=== PATIENT | female | born 1945 | race Caucasian/White ===

== ENCOUNTER 2017-01-11 16:07 | Inpatient (IN) | payer MEDICARE, OTHER ==
--- NOTE | ~2017-01-11 | CN ---
Consultation Report [facility] [address] [place]. [address] NAME: CESARIO CHAND : 45 STATUS : ADM IN PAT#: [id number] AGE: 71 ADM/REG DATE : 01/11/17 MR#: [id number] REPORT SERV DATE: 01/13/17 DICTATED BY: AMAURY MICHAEL DATE: 01/12/17 REPORT STATUS : Draft TRANSCRIBED BY: MODL DATE: 01/12/17 CONSULTATION DATE OF CONSULTATION: 01/12/2017 REASON FOR CONSULTATION: Adnexal mass. REASON FOR ADMISSION: 1. On 01/11/2017, evaluation for monthlong nausea or vomiting with current medical problems in a 71-year-old white female, 1, para 1, with past history of anemia secondary to bleeding hemorrhoids in which she received an iron transfusion. 2. Atrial fibrillation and atrial fibrillation flutter with three past cardiac ablations. 3. Diabetes type 2 with insulin pump. 4. Acute urinary tract infection. 5. Chronic kidney disease, stage III. 6. Pulmonary hypertension with left ventricular hypertrophy. 7. Hypoxemia and tobacco use. HISTORY OF PRESENT ILLNESS: Ms Chand presented to the emergency room after a month of nausea and vomiting for the past months in which she says she has lost 30 to 35 pounds, and has been unable to take multiple medications. She has been admitted for urinary tract infection, and dehydration for which she has been treated with Rocephin and IV fluids. She states she has had chronic nausea and vomiting for quite some time due to reflux, but in the past month it became worse, where she could not keep her medications down. She came to [facility] Emergency room on 11/25/2016. At which time, she had a CT that did not show specific pelvic abnormalities, although she did at that time have the same finding she had here, which was 18 x 28 mm simple cyst on the left without ascites or adenopathy. The CT obtained yesterday at [facility] revealed the same findings 18 x 28 mm simple cyst without adenopathy or ascites. I had discussed these two CT reports with Dr. Gonzalez Saab at [facility]. PAST SURGICAL HISTORY: Includes cardiac ablation x3, section 40 years ago, cholecystectomy and hysterectomy performed many years ago as well. PHYSICAL EXAMINATION: As previously noted. IMPRESSION: 71-year-old white female with chronic nausea and vomiting with recent dehydration and urinary tract infection, being evaluated for cause of this incidental finding of 1.8 x 2.8 cm simple cyst on the left ovary, which has not changed in the past month and a half. This is likely chronic and shows no sign of contributing to her current condition. At this point, I would recommend followup ultrasound in four to six months, but would not recommend further workup on this admission as a source of nausea or pain. I will be available for further questions or evaluations as needed. Consultation Report [address] [place]. [address] NAME: CESARIO CHAND : 45 STATUS : ADM IN PAT#: [id number] AGE: 71 ADM/REG DATE : 01/11/17 MR#: [id number] REPORT SERV DATE: 01/13/17 DICTATED BY: AMAURY MICHAEL DATE: 01/12/17 REPORT STATUS : Draft TRANSCRIBED BY: RANDALL DATE: 01/12/17 BRENTON/RANDALL aury Michael M.D. / [id number] CC: Andie Reinoso M.D.
--- NOTE | ~2017-01-11 | DS ---
Discharge Summary [facility] [address] [place]. [address] NAME: CESARIO RENTERAI : 45 STATUS : DIS IN PAT#: [id number] AGE: 71 ADM/REG DATE : 01/11/17 MR#: [id number] REPORT SERV DATE: 01/15/17 DICTATED BY: INGRID JOHNSON DATE: 01/14/17 REPORT STATUS : Draft TRANSCRIBED BY: MODL DATE: 01/14/17 ADMISSION DATE: 01/11/2017 DISCHARGE DATE: 01/14/2017 PRINCIPAL DIAGNOSES: Intractable nausea and vomiting with dehydration, and hypovolemic acute kidney injury. SECONDARY DIAGNOSES: Atypical atrial flutter with wide-complex tachycardia, hypothyroidism due to medication noncompliance, abnormal liver function tests, pericardial effusion of ovarian cyst, hypokalemia, urinary tract infections, and diabetes. HISTORY OF PRESENT ILLNESS: Please see Dr. Judge's dictation on 01/11/2017. HOSPITAL COURSE: Admitted with severe nausea and vomiting with 30-pound weight loss over the course of a month. The patient had no antiemetics, but was unable to hold down much including her medications, and stopped taking her Synthroid among other things, came to the hospital and found to be severely hypothyroid with acute kidney injury and with a weight loss. As mentioned she was somewhat hypotensive, received aggressive IV hydration, antiemetics. Actually once dextrose and fluids were given, she actually felt quite a bit better, so will be taken off antiemetics and diet advanced. Pericardial effusion was felt to be secondary to hypothyroidism, this was minimal, and found not to be hemodynamically significant. She was seen by Dr. Wiggins, who was aware of her previous wide-complex tachyarrhythmias and these were found on previous EP study to be atrial in origin consistent with atrial flutter. She was taken off flecainide at admission due to concerns of ventricular arrhythmias precipitated by flecainide, placed on higher dose of Coreg and actually had no further events, she converted back to normal sinus rhythm. Echocardiogram showed normal EF. Pulmonary pressures at 32 mmHg. I discussed these issues with her oncology transplant network manager, she felt like no further intervention was necessary. She was tolerating p.o., and walking well, able to be released on much lower medications than she came in on. We actually had stopped numerous things, part of the things that she had stopped on her own. DIET: As tolerated. ACTIVITY: As tolerated. DISCHARGE MEDICATIONS: Continuing Synthroid 200 mcg, Coreg 25 mg b.i.d., and Remeron 15 mg q.h.s., which replaced the Paxil. She has received three days of antibiotics, no further were given. She continued her acid alonzo, Lipitor. She was instructed to resume her home diabetic regimen. She would follow up with Dr. Wiggins next week and with Dr. Oliver Allen in two weeks. Lastly, it should be noted that her ovarian cyst found incidentally on CT, was found to be old negative CA-125, actually seen by Gynecology, who felt no further intervention or workup was necessary. Discharge Summary [address] [place]. [address] NAME: CESARIO RENTERIA : 45 STATUS : DIS IN PAT#: [id number] AGE: 71 ADM/REG DATE : 01/11/17 MR#: [id number] REPORT SERV DATE: 01/15/17 DICTATED BY: INGRID JOHNSON DATE: 01/14/17 REPORT STATUS : Draft TRANSCRIBED BY: RANDALL DATE: 01/14/17 Juan A/RANDALL Ingrid Johnson M.D. / [id number] CC: Andie Reinoso M.D. David Wendt, M.D.
--- NOTE | ~2017-01-11 | CN ---
Consultation Report [facility] [address] [place]. [address] NAME: CESARIO RENTERIA : 45 STATUS : ADM IN PAT#: [id number] AGE: 71 ADM/REG DATE : 01/11/17 MR#: [id number] REPORT SERV DATE: 01/12/17 DICTATED BY: WILL WIGGINS DATE: 01/12/17 REPORT STATUS : Draft TRANSCRIBED BY: MODL DATE: 01/12/17 CARDIOLOGY CONSULTATION DATE OF CONSULTATION: INDICATION: Weight loss, pericardial effusion, atypical atrial flutter. HISTORY OF PRESENT ILLNESS: The patient is a 71-year-old white female with previous catheter ablation for atrial fibrillation x2, the first on 12/18/2007, the second on 11/27/2008. She has had a cardioversion on 07/01/2015 and has been in stable condition on Jantoven and flecainide. In November of this year, she began to have difficulty swallowing. This started with meat and progressed to larger food types. She eventually lost a total of 30 pounds. While she has had no fever or chills, she has had significant constipation and obstipation, resulting in hemorrhoid discomfort. She has underlying mitral annular calcification, but no overt valvular disease as of 2014. She has been on an insulin pump for her underlying diabetes, followed by Dr. Allen. She has chronic kidney disease stage 3, followed by Dr. Galloway. At this time, she has an IV. She is more comfortable. Upon admission, she was in a wide complex rhythm, which has returned to a narrow complex rhythm. The rhythm presently appears to be an atypical atrial flutter with 2:1 conduction. She is at this time asymptomatic. CURRENT HOME MEDICATIONS: Atorvastatin 20 a day, carvedilol 12.5 b.i.d., cholecalciferol 1000 per day, clonidine patch 0.3 b.i.d., Dexilant 30 p.o. daily, famotidine 40 per day, fenofibrate 160 at h.s., flecainide 50 b.i.d., fluoxetine 40 a day, folic acid 400 per day, furosemide 20 b.i.d., hydrocodone/APAP 5/325 three times a day, NPH insulin at h.s., levothyroxine sodium 200 mcg per day, losartan 100/12.5 daily, nifedipine XL 30 b.i.d., omega-3 fatty acids daily, omeprazole 20 a day, potassium gluconate as tolerated, pramipexole 0.25 daily, Aldactone 25 a day, vitamin E daily, warfarin as directed. ALLERGIES OR INTOLERANCES: Tadalafil. SOCIAL HISTORY: She is . usually is very attentive to her. Negative for current alcohol. She does have a past history of tobacco use. FAMILY HISTORY: Negative for coronary artery disease at young age. There is no history of stroke. PAST MEDICAL HISTORY/REVIEW OF SYSTEMS: See above. She has had longstanding diabetes and Consultation Report [address] [address] NAME: CESARIO RENTERIA : 45 STATUS : ADM IN [facility]#: [id number] AGE: 71 ADM/REG DATE : 01/11/17 MR#: [id number] REPORT SERV DATE: 01/12/17 DICTATED BY: WILL WIGGINS DATE: 01/12/17 REPORT STATUS : Draft TRANSCRIBED BY: RANDALL DATE: 01/12/17 stable chronic kidney disease stage 3. She has a history of pulmonary hypertension and has been intolerant to the PDE5 inhibitors. She in the past has had chronic lymphedema with trophic changes and nocturnal hypoxemia, for which she is on 2 L of oxygen at home. She takes pramipexole for periodic limb movement disorder. 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 PHYSICAL EXAMINATION: GENERAL: A 71-year-old white female, came in through the emergency room. VITAL SIGNS: Blood pressure 123/81, pulse 101 and regular, respirations 16. SKIN: No xanthelasmas. She does have trophic changes to lower extremities. HEENT: She is normocephalic. There is no pallor. Sclerae are white. NECK: JVD is not elevated. There are no carotid bruits. CHEST: There are no rhonchi or wheezes. There is slight kyphosis. CARDIAC: PMI is not displaced. There is an S4. There is a 2/6 systolic ejection murmur at the base. ABDOMEN: Without tenderness. EXTREMITIES: Without edema. No clubbing. NEUROLOGIC: No focal deficits. 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 evidence of pulmonary arterial hypertension with the PA artery measuring 3.3 cm in diameter. She has a small pericardial effusion. Admitting BUN is 24 with a creatinine of 2.19, which has declined to 1.65, close to her baseline. Magnesium 1.5, glucose 134. Alkaline phosphatase is 190, AST is elevated at 104. TSH is markedly elevated at 34.9. Admitting white count is 13.6, hemoglobin 12.3, platelets 257,000. INR 1.3. Baseline ECG shows atypical flutter with no acute repolarization changes present. IMPRESSION: 71-year-old white female with multiple ongoing medical issues. She has had stable control of her arrhythmias and cardiac function over the years. We will recheck an echocardiogram to see if there was any progress in her valvular heart disease as well as to get better assessment of her pericardial effusion. At this point, she is not able to easily take medications, and I am going to defer changing her antiarrhythmic therapy for the time being. Further recommendations as her course evolves. KALPESH/RANDALL Will Wiggins M.D. / [id number] CC: Consultation Report [address] [address] NAME: CESARIO RENTERIA : 45 STATUS : ADM IN [facility]#: [id number] AGE: 71 ADM/REG DATE : 01/11/17 MR#: [id number] REPORT SERV DATE: 01/12/17 DICTATED BY: WILL WIGGINS DATE: 01/12/17 REPORT STATUS : Draft TRANSCRIBED BY: RANDALL DATE: 01/12/17 Andie Reinoso M.D. [facility]
--- NOTE | ~2017-01-11 | HP ---
History And Physical [place] [id number] [facility] [place]. [address] NAME: CESARIO RENTERIA : 45 STATUS : ADM IN [facility]#: [id number] AGE: 71 ADM/REG DATE : 01/11/17 MR#: [id number] REPORT SERV DATE: 01/11/17 DICTATED BY: DI FIELDS DATE: 01/11/17 REPORT STATUS : Draft TRANSCRIBED BY: MODMitali DATE: 01/11/17 DATE OF ADMISSION: 01/11/2017 CHIEF COMPLAINT: Nausea and vomiting x1 month. HISTORY OF PRESENT ILLNESS: The patient is a 71-year-old female with past medical history of anemia with bleeding ulcers, who recently underwent iron transfusion for these symptoms with her dimensional engineer, who has a history of atrial fibrillation, flutter, followed by Dr. Wiggins, multiple medications, has undergone three ablations in the past, additionally CKD, followed by Dr. Galloway, who presents after still having persistent nausea and vomiting episodes over one month. The patient also reports that she has had approximately a 30- to 35- pound weight loss over this last month. The patient has been unable to tolerate any of her medications for at least last three weeks including her heart protection medications or blood pressure medications, which she has previously seen at [facility] for blood pressure control. The patient reports that these current symptoms have decreased her p.o. intake. Symptoms have been constant, moderate severity. No pain or radiating symptoms reported except for cramping in lower legs at times. Positive for nausea and vomiting. No fevers, chills, shortness of breath, chest pain, or palpitations, but does have atrial fibrillation history. Symptoms are worsened with activity, relieved by rest and lying down. ADDITIONAL REVIEW OF SYSTEMS: GENERAL: Noted for 30-pound weight loss. No fevers or chills. EYES: No visual change or pain. ENT: No sore throat or congestion. NEURO: No headache or confusion. SKIN: No rashes or bruising acutely. RESPIRATORY: No shortness of breath or dyspnea. CV: No chest pain, but does have irregular heart rhythm. GI: Positive for nausea, vomiting, and abdominal discomfort. : No dysuria or hematuria. MUSCULOSKELETAL: No myalgias or arthralgias above baseline. ENDO: Positive fatigue. No polyuria. HEME: No bleeding or bruising. IMMUNOLOGIC: No rhinorrhea. PSYCH: Mild anxiety. No confusion. PAST MEDICAL HISTORY: From what the patient recalls, has some kidney dysfunction, followed by Dr. Galloway; atrial fibrillation pattern with three ablations, followed by Dr. Wiggins; hypertension, followed at [facility]; arthritis. SURGERIES: , gallbladder, cardiac ablations x3. SOCIAL HISTORY: No smoking, alcohol, or illicits. FAMILY HISTORY: Strokes. PHYSICAL EXAMINATION: History And Physical [address] [address] NAME: CESARIO RENTERIA : 45 STATUS : ADM IN [facility]#: [id number] AGE: 71 ADM/REG DATE : 01/11/17 MR#: [id number] REPORT SERV DATE: 01/11/17 DICTATED BY: DI FIELDS DATE: 01/11/17 REPORT STATUS : Draft TRANSCRIBED BY: RANDALL DATE: 01/11/17 VITAL SIGNS: The patient's blood pressure 123/81, temperature 97.8, pulse of 101, respirations 16, O2 sats 97%. GENERAL: Frail, elderly. EYES: No scleral icterus. ENT: Dry mucous membranes. RESPIRATORY: Clear to auscultation. No wheezes. CV: Irregularly irregular with 1:1 beat pulse ratio. No pedal edema. GI: Soft, nontender currently. Although the patient was reported tender on initial presentation, unable to localize tenderness currently. : Deferred. MUSCULOSKELETAL: Moves all extremities x4. SKIN: Warm and dry with mild tenting. LYMPH: No cervical or supraclavicular lymphadenopathy. HEME: No bleeding or bruising. NEURO: Alert and oriented. Moves all extremities. Symmetrical strength in hands bilaterally, but does have muscle atrophy. PSYCH: Appropriate mood. Mildly anxious. ALLERGIES: REPORTED SOME HYPERTENSION MEDICATIONS, UNCLEAR WHAT THESE ARE. OF NOTE, THE PATIENT HAS NOT TAKEN THE MEDICATION IN THE LAST THREE WEEKS. MEDICATIONS: That she was on, atorvastatin, Coreg, vitamin D 1000, clonidine 0.3 half tablet b.i.d., Dexilant, Pepcid, fenofibrate, flecainide, Prozac, folic acid, Lasix, [place], Novolin, levothyroxine, Hyzaar, nifedipine, fish oil, Prilosec, potassium, Mirapex, Aldactone, vitamin E, and Jantoven. LABORATORY DATA AND IMAGING: CT abdomen and pelvis, no acute GI or obstruction. Prior chastity. Hysterectomy. Left ovarian cyst mass, recommended further evaluation. Small pericardial effusion since 11/25/2016. Troponin 0.09. TSH at 41.9, lactate 2.3. Urinalysis, trace leukocyte esterase, many bacteria, and elevated wbc. CMP; sodium 138; potassium 3.3; BUN and creatinine 24 and 2.19, previously 1.48; AST 103; alkaline phosphatase 217; lipase 370. INR 1.3. Portable chest, cardiomegaly, slight pulmonary vascular prominence. CBC; WBC count 12.9, H and H 13.8 and 40, platelets 277. EKG, atrial flutter, rate of 111. QTc 538. ASSESSMENT AND PLAN: 1. Acute kidney injury. 2. Urinary tract infection. 3. Wide-complex tachycardia, back to atrial flutter. 4. Left ovarian cystic mass. 5. Pericardial effusion. 6. Hypokalemia. 7. LFT elevation. 8. Diabetes type 2. 9. Medication not adherent secondary to nausea and vomiting. 10.Hypothyroidism. History And Physical [address] [address] NAME: CESARIO RENTERIA : 45 STATUS : ADM IN [facility]#: [id number] AGE: 71 ADM/REG DATE : 01/11/17 MR#: [id number] REPORT SERV DATE: 01/11/17 DICTATED BY: DI FIELDS DATE: 01/11/17 REPORT STATUS : Draft TRANSCRIBED BY: MODL DATE: 01/11/17 PLAN: 1. For SILVIO, the patient has been having approximately a month of nausea, vomiting, and decreased p.o. intake. Additionally had CT contrast. Given IV fluids. Hydrate. Monitor I's and O's. Electrolytes. Does see Dr. Baker as an outpatient. If does not improve with initial treatment and treatment of UTI, may require Nephrology consult. Ultrasound of kidneys. 2. UTI. Rocephin. 3. Wide-complex tachycardia on telemetry. The patient was on flecainide, calcium channel blockers, beta-blockers, but does not take any of these medications from approximately a month. Does have electrolyte abnormalities and current urine infection. We will optimize lytes. Treat infection. Try to restart home medications as tolerated, although with weight loss, may need adjustments. We will request Dr. Wiggins's guidance due to the patient's reported 30-pound weight loss and for different optimization. The patient has undergone approximately three ablations in the past. The family also requesting Dr. Wiggins to evaluate. 4. Left ovarian cystic mass. Has had prior hysterectomy, but does still have ovaries. We will consult Gynecology for further evaluation. 5. Pericardial effusion. Unclear cause. Could this be secondary to flutter pattern. Does not have tamponade component at this time, but we will also ask for additional assistance by Cardiology, Dr. Wiggins. 6. Hypokalemia. Replace. Likely secondary to nausea and vomiting. 7. Elevated LFTs. Monitor. Check ultrasound. 8. Diabetes type 2. Sliding scale insulin. 9. Medication nonadherence secondary to nausea and vomiting. Unclear etiology. Could this possibly be secondary to underlying cystic mass from ovaries versus UTI versus SILVIO and possible uremic component. We will try to optimize kidney function, treat infection, and continue workup for ovarian cystic mass. Concern as the patient is reporting a 30-pound weight loss. The patient who was previously difficult to control hypertensive, is currently normotensive without any medications. 10.Hypothyroidism. The patient's TSH is in the 40s. We will check free T4. We will need to restart medications when the patient tolerates p.o. Additional confounding component. Anticipate greater than two midnight inpatient stay. Discussed with the patient and family at bedside. DDN/MODL Di Fields MD / [id number] CC: Hernandez Aquino M.D. History And Physical [address] [address] NAME: CESARIO RENTERIA : 45 STATUS : ADM IN PAT#: [id number] AGE: 71 ADM/REG DATE : 01/11/17 MR#: [id number] REPORT SERV DATE: 01/11/17 DICTATED BY: DI FIELDS DATE: 01/11/17 REPORT STATUS : Draft TRANSCRIBED BY: MODL DATE: 01/11/17 Oliver Allen M.D.
[2017-01-11 14:58] LABS: BASOPHILS 0.2 %; BASOPHILS ABSOLUTE 0.03 10/3/uL (0.0-0.16); EOSINOPHILS 0.6 %; EOSINOPHILS ABSOLUTE 0.08 10/3/uL (0.0-0.53); HEMOGLOBIN 13.8 g/dL (12.0-16.0); IMMATURE GRANULOCYTES 0.3 %; IMMATURE GRANULOCYTES ABSOLUTE 0.04 10/3/uL (0.0-0.11); LYMPHOCYTES 11.2 %; LYMPHOCYTES ABSOLUTE 1.44 10/3/uL (0.67-4.30); MANUAL DIFF NO %; MEAN CORPUS HGB CONC 34.5 g/dL (32.0-36.0); MEAN CORPUSCULAR HEMOGLOB 27.8 pg (26.0-34.0); MEAN CORPUSCULAR VOLUME 80.5 fL (80-100); MEAN PLATELET VOLUME 9.4 fL (9.2-13.0); MONOCYTES 6.8 %; MONOCYTES ABSOLUTE 0.88 10/3/uL (0.21-1.20); NEUTROPHILS 80.9 %; PLATELET COUNT 277 10/3/uL (150-400); RBC DISTRIBUTION WIDTH 18.3 % (12.0-16.0); RED CELL COUNT 4.97 10/6/uL (4.0-5.6); WHITE BLOOD CELLS 12.9 10/3/uL (4.5-10.5)
[2017-01-11 15:06] LABS: INTERNATIONAL NORMAL RATI 1.3 UNITS (-)
[2017-01-11 15:10] LABS: PROTIME (NOT ORD) 15.6 SEC (12.0-14.5)
[2017-01-11 15:14] LABS: A/G RATIO 0.5 (0.7-1.9); ALBUMIN 2.8 G/DL (3.5-5.0); CALCIUM, SERUM 9.9 MG/DL (8.5-10.4); CHLORIDE, SERUM 100 MMOL/L (96-112); CO2 (CARBON DIOXIDE) 24 MMOL/L (24-34); GLOBULIN 5.2 G/DL (2.5-4.1); GLUCOSE, SERUM 145 MG/DL (60-99); POTASSIUM, SERUM 3.3 MMOL/L (3.5-5.3); SGOT(AST) 103 U/L (5-40); SGPT(ALT) 41 U/L (5-65); SODIUM, SERUM 138 MMOL/L (135-148); TOTAL BILIRUBIN 0.9 MG/DL (0-1.2)
[2017-01-11 15:15] LABS: ASCORBIC ACID (UR NOT ORDER) NEG (NEG); BILIRUBIN, URINE NEGATIVE (NEG); ER URINALYSIS TAT 0 Hrs 23 Mins; KETONE, URINE NEGATIVE (NEG); LEUKOCYTE ESTERASE(NOT OR TRACE (NEG); NITRITE (URINE) NEG (NEG); WBC (NOT ORDERED) (RFLEX) 74 (0-5)
[2017-01-11 15:15] LABS: ALKALINE PHOSPHATASE 217 U/L (45-117); BUN (BLOOD UREA NITROGEN) 24 MG/DL (6-23); CREATININE 2.19 MG/DL (0.55-1.02); GFR AFRICAN AMERICAN 25 ML/MIN (>=60); GFR NON AFRICAN AMERICAN 22 ML/MIN (>=60)
[2017-01-11 15:22] LABS: TROPONIN I 0.09 NG/ML (<0.05); ULTRASENSITIVE TSH 41.9 MCIU/ML (0.358-3.740)
[~2017-01-11 16:07] MED LIST: BENICAR HCT1 TA1 PO; C1 PO; CARTIA XT120 MG/24 PO; CAT3 PO; COREG25 PO; COREG6 PO; FISH OIL1200 MG PO; FOLIC ACID400 MC1 PO; FOLIC PO; HUMALOGMIX SC; HYDROCHLOROT25 MG PO; HYZAAR1 TAB PO; INSNOVN SC; INSNOVR SC; JANTOVEN2 MG PO; JANTOVEN3 MG PO; KAPIDEX30 MG PO; L20 PO; LEVEMIR SC; LEVOTHYROXIN100 MCG PO; LEVOTHYROXIN200 MCG PO; LIPITOR20 PO; LOFIB160 PO; LORTAB10 PO; MIRAPEX250 PO; NIFEDICAL XL30 MG PO; NORCO1 TA1 PO; NOVOLOG SC; ORAZINC110 MG PO; PEPCID40 MG PO; POT GLUCONAT595 M1 OR; POTASSIUM GLUCO99 MG PO; PRILO PO; PROZAC40 MG PO; SPIRO25 PO; TAMBO50 PO; VITAMIN B-121000 MC1 SL; VITAMIN D1000 UNI1 PO; VITE PO
[2017-01-11] MEDS ORDERED: *UNABLE3 (17:51)
[2017-01-11 20:46] LABS: PROCALCITONIN 0.85 ng/mL (<0.5)
[2017-01-11 22:53] LABS: BASOPHILS 0.3 %; BASOPHILS ABSOLUTE 0.04 10/3/uL (0.0-0.16); EOSINOPHILS 1.2 %; EOSINOPHILS ABSOLUTE 0.16 10/3/uL (0.0-0.53); HEMATOCRIT 38.3 % (36.0-48.0); IMMATURE GRANULOCYTES 0.5 %; IMMATURE GRANULOCYTES ABSOLUTE 0.06 10/3/uL (0.0-0.11); LYMPHOCYTES 12.2 %; MEAN CORPUS HGB CONC 33.9 g/dL (32.0-36.0); MEAN CORPUSCULAR HEMOGLOB 27.5 pg (26.0-34.0); MEAN CORPUSCULAR VOLUME 81.1 fL (80-100); MEAN PLATELET VOLUME 9.5 fL (9.2-13.0); MONOCYTES 6.9 %; MONOCYTES ABSOLUTE 0.91 10/3/uL (0.21-1.20); NEUTROPHILS 78.9 %; NEUTROPHILS ABSOLUTE 10.33 10/3/uL (2.02-8.40); PLATELET COUNT 263 10/3/uL (150-400); RBC DISTRIBUTION WIDTH 18.5 % (12.0-16.0); RED CELL COUNT 4.72 10/6/uL (4.0-5.6); WHITE BLOOD CELLS 13.1 10/3/uL (4.5-10.5)
[2017-01-11 22:54] LABS: MANUAL DIFF NO %
[2017-01-11 23:17] LABS: A/G RATIO 0.6 (0.7-1.9); ALBUMIN 2.6 G/DL (3.5-5.0); BUN (BLOOD UREA NITROGEN) 23 MG/DL (6-23); CALCIUM, SERUM 9.3 MG/DL (8.5-10.4); CHLORIDE, SERUM 105 MMOL/L (96-112); CO2 (CARBON DIOXIDE) 23 MMOL/L (24-34); FREE T4 1.04 NG/DL (0.76-1.46); GFR AFRICAN AMERICAN 32 ML/MIN (>=60); GFR NON AFRICAN AMERICAN 28 ML/MIN (>=60); GLOBULIN 4.4 G/DL (2.5-4.1); PHOSPHORUS, SERUM 3.6 MG/DL (2.5-4.5); POTASSIUM, SERUM 3.6 MMOL/L (3.5-5.3); SGOT(AST) 95 U/L (5-40); SGPT(ALT) 41 U/L (5-65); SODIUM, SERUM 143 MMOL/L (135-148); TOTAL BILIRUBIN 0.7 MG/DL (0-1.2)
[2017-01-11 23:19] LABS: ALKALINE PHOSPHATASE 200 U/L (45-117); GLUCOSE, SERUM 106 MG/DL (60-99)
[2017-01-12 00:04] LABS: PROCALCITONIN 0.75 ng/mL (<0.5)
[2017-01-12 06:41] LABS: BASOPHILS 0.4 %; BASOPHILS ABSOLUTE 0.04 10/3/uL (0.0-0.16); EOSINOPHILS 1.4 %; EOSINOPHILS ABSOLUTE 0.16 10/3/uL (0.0-0.53); HEMATOCRIT 36.7 % (36.0-48.0); HEMOGLOBIN 12.3 g/dL (12.0-16.0); IMMATURE GRANULOCYTES 0.4 %; IMMATURE GRANULOCYTES ABSOLUTE 0.05 10/3/uL (0.0-0.11); LYMPHOCYTES 10.8 %; MEAN CORPUS HGB CONC 33.5 g/dL (32.0-36.0); MEAN CORPUSCULAR HEMOGLOB 27.4 pg (26.0-34.0); MEAN CORPUSCULAR VOLUME 81.7 fL (80-100); MEAN PLATELET VOLUME 9.2 fL (9.2-13.0); MONOCYTES 7.1 %; MONOCYTES ABSOLUTE 0.79 10/3/uL (0.21-1.20); NEUTROPHILS 79.9 %; NEUTROPHILS ABSOLUTE 8.88 10/3/uL (2.02-8.40); PLATELET COUNT 257 10/3/uL (150-400); RBC DISTRIBUTION WIDTH 18.4 % (12.0-16.0); RED CELL COUNT 4.49 10/6/uL (4.0-5.6); WHITE BLOOD CELLS 11.1 10/3/uL (4.5-10.5)
[2017-01-12 06:45] LABS: MANUAL DIFF NO %
[2017-01-12 06:57] LABS: A/G RATIO 0.6 (0.7-1.9); ALBUMIN 2.4 G/DL (3.5-5.0); ALKALINE PHOSPHATASE 190 U/L (45-117); BUN (BLOOD UREA NITROGEN) 22 MG/DL (6-23); CHLORIDE, SERUM 105 MMOL/L (96-112); CO2 (CARBON DIOXIDE) 23 MMOL/L (24-34); CREATININE 1.65 MG/DL (0.55-1.02); GFR AFRICAN AMERICAN 36 ML/MIN (>=60); GFR NON AFRICAN AMERICAN 31 ML/MIN (>=60); GLOBULIN 4.3 G/DL (2.5-4.1); GLUCOSE, SERUM 134 MG/DL (60-99); POTASSIUM, SERUM 3.7 MMOL/L (3.5-5.3); SGOT(AST) 104 U/L (5-40); SGPT(ALT) 40 U/L (5-65); SODIUM, SERUM 140 MMOL/L (135-148); TOTAL BILIRUBIN 0.7 MG/DL (0-1.2); TOTAL PROTEIN 6.7 G/DL (6.0-8.5); TROPONIN I 0.08 NG/ML (<0.05)
[2017-01-13 05:56] LABS: BASOPHILS 0.1 %; BASOPHILS ABSOLUTE 0.01 10/3/uL (0.0-0.16); EOSINOPHILS 0 %; HEMATOCRIT 33.4 % (36.0-48.0); HEMOGLOBIN 11.2 g/dL (12.0-16.0); IMMATURE GRANULOCYTES 0.3 %; IMMATURE GRANULOCYTES ABSOLUTE 0.03 10/3/uL (0.0-0.11); LYMPHOCYTES 5.1 %; LYMPHOCYTES ABSOLUTE 0.46 10/3/uL (0.67-4.30); MANUAL DIFF NO %; MEAN CORPUS HGB CONC 33.5 g/dL (32.0-36.0); MEAN CORPUSCULAR HEMOGLOB 27.7 pg (26.0-34.0); MEAN CORPUSCULAR VOLUME 82.5 fL (80-100); MEAN PLATELET VOLUME 9.4 fL (9.2-13.0); MONOCYTES 1.8 %; MONOCYTES ABSOLUTE 0.16 10/3/uL (0.21-1.20); NEUTROPHILS 92.7 %; NEUTROPHILS ABSOLUTE 8.28 10/3/uL (2.02-8.40); PLATELET COUNT 233 10/3/uL (150-400); RBC DISTRIBUTION WIDTH 18.5 % (12.0-16.0); RED CELL COUNT 4.05 10/6/uL (4.0-5.6); WHITE BLOOD CELLS 8.9 10/3/uL (4.5-10.5)
[2017-01-13 06:04] LABS: INTERNATIONAL NORMAL RATI 1.4 UNITS (-)
[2017-01-13 06:13] LABS: % IRON SAT 42 % (20-50); A/G RATIO 0.6 (0.7-1.9); ALBUMIN 2.4 G/DL (3.5-5.0); BUN (BLOOD UREA NITROGEN) 22 MG/DL (6-23); CALCIUM, SERUM 8.4 MG/DL (8.5-10.4); CHLORIDE, SERUM 102 MMOL/L (96-112); CO2 (CARBON DIOXIDE) 20 MMOL/L (24-34); CREATININE 1.71 MG/DL (0.55-1.02); FERRITIN 424 NG/ML (8-252); GFR AFRICAN AMERICAN 34 ML/MIN (>=60); GFR NON AFRICAN AMERICAN 30 ML/MIN (>=60); GLOBULIN 4.2 G/DL (2.5-4.1); IRON BINDING CAPACITY 168 MCG/DL (225-410); IRON, SERUM 71 MCG/DL (35-150); POTASSIUM, SERUM 3.6 MMOL/L (3.5-5.3); SGOT(AST) 73 U/L (5-40); SGPT(ALT) 37 U/L (5-65); SODIUM, SERUM 134 MMOL/L (135-148); TOTAL BILIRUBIN 0.5 MG/DL (0-1.2); TOTAL PROTEIN 6.6 G/DL (6.0-8.5)
[2017-01-13 06:16] LABS: ALKALINE PHOSPHATASE 177 U/L (45-117); GLUCOSE, SERUM 187 MG/DL (60-99)
[2017-01-13 08:01] LABS: CA 125 II 28.9 U/ML (< 35.0)
[2017-01-14 07:46] LABS: BUN (BLOOD UREA NITROGEN) 22 MG/DL (6-23); CALCIUM, SERUM 7.9 MG/DL (8.5-10.4); CHLORIDE, SERUM 103 MMOL/L (96-112); CO2 (CARBON DIOXIDE) 20 MMOL/L (24-34); CREATININE 1.54 MG/DL (0.55-1.02); FREE T4 1.17 NG/DL (0.76-1.46); GFR AFRICAN AMERICAN 39 ML/MIN (>=60); GFR NON AFRICAN AMERICAN 34 ML/MIN (>=60); POTASSIUM, SERUM 3.7 MMOL/L (3.5-5.3); SODIUM, SERUM 134 MMOL/L (135-148)
[2017-01-14 07:47] LABS: GLUCOSE, SERUM 260 MG/DL (60-99)
[2017-01-14] MEDS ORDERED: REM15 PO (11:01)
[2017-01-14] MEDS ORDERED: TOUJEO (14:23)
[2017-01-31] MEDS ORDERED: LEVOTHYROXIN175 MCG PO (15:37)
[2017-01-31] MEDS ORDERED: NXL3 PO (15:48)
[2017-01-31] MEDS ORDERED: DEMA20 PO (15:53)
[2017-01-31] MEDS ORDERED: NORCO1 TA1 PO (15:56)
[2017-01-31] MEDS ORDERED: INSNOVN SC (15:57)
[2017-01-31] MEDS ORDERED: INSNOVR SC (15:58)
== END 2017-01-14 15:51 | disposition home or self-care (01) | DRG 683 ==
LOC: ER 16:07 → 1SO 19:23
PROVIDERS: Emergency Medicine; Internal Medicine; Student in an Organized Health Care Education/Training Program
DX: N17.9 Acute kidney failure, unspecified (principal); N39.0 Urinary tract infection, site not specified; E44.0 Moderate protein-calorie malnutrition; I31.3 Pericardial effusion (noninflammatory); I48.4 Atypical atrial flutter; E11.22 Type 2 diabetes mellitus with diabetic chronic kidney disease; I27.2 Other secondary pulmonary hypertension; I48.91 Unspecified atrial fibrillation; E83.42 Hypomagnesemia; I12.9 Hypertensive chronic kidney disease with stage 1 through stage 4 chronic kidney disease, or unspecified chronic kidney disease; R13.10 Dysphagia, unspecified; E86.0 Dehydration; D63.1 Anemia in chronic kidney disease; B96.1 Klebsiella pneumoniae [K. pneumoniae] as the cause of diseases classified elsewhere; Z99.81 Dependence on supplemental oxygen; K59.00 Constipation, unspecified; R09.02 Hypoxemia; N18.3 Chronic kidney disease, stage 3 (moderate); N83.292 Other ovarian cyst, left side; K52.9 Noninfective gastroenteritis and colitis, unspecified; Z68.26 Body mass index [BMI] 26.0-26.9, adult; E87.6 Hypokalemia; E03.9 Hypothyroidism, unspecified; Z91.14 Patient's other noncompliance with medication regimen; Z79.01 Long term (current) use of anticoagulants; Z79.4 Long term (current) use of insulin; Z79.891 Long term (current) use of opiate analgesic; Z79.899 Other long term (current) drug therapy; Z96.41 Presence of insulin pump (external) (internal); Z88.8 Allergy status to other drugs, medicaments and biological substances
CPT/HCPCS: 71010; 74176; 76700; 80048; 80053; 81001; 82140; 82728; 82962; 83540; 83550; 83605; 83690; 83735; 84100; 84145; 84439; 84443; 84484; 85025; 85610; 86304; 87077; 87086; 87186; 93005; 93306; 96374; 96375; 99285; A9270-GY; J1720; J2405; J3475

== ENCOUNTER 2017-01-18 08:22 | Day surgery (SDC) | payer MEDICARE, OTHER ==
--- NOTE | ~2017-01-18 | OP ---
Record Of Operation [facility] [address] [place]. [address] NAME: CESARIO RENTERIA : 45 STATUS : REG [facility] PAT#: [id number] AGE: 71 ADM/REG DATE : 01/18/17 MR#: [id number] REPORT SERV DATE: 01/19/17 DICTATED BY: BRAD WEINSTEIN DATE: 01/18/17 REPORT STATUS : Draft TRANSCRIBED BY: MODL DATE: 01/18/17 DATE OF PROCEDURE: 01/18/2017 ADDENDUM TO EMR NOTE: PROCEDURE: Colonoscopy, polypectomy, and biopsy. SEDATION: Diprivan. FINDING: Olympus video scope was passed to the cecum. The visualization was excellent. There were multiple polyps removed from colon. There was one polyp in the very proximal ascending colon, due to the angulation, could not be retrieved, could not be snared. It was probably 5 to 7 mm. A total of eight polyps were removed. Nothing looks suspicious. There were a few diminutive polyps in the ascending colon and one in the sigmoid that was not retrieved, due to the length of the procedure. It will be retrieved on followup exam. She did have prominent internal hemorrhoids on retroflexed view of the rectum with signs of thinning. They were also seen in a regular view. IMPRESSION: 1. Multiple colon polyps removed with snare and hot biopsy. 2. Some diminutive one was left that will be followed up in probably one to two years. 3. Prominent internal hemorrhoids with signs of thinning. MG/RANDALL Brad Weinstein M.D. / [id number] CC: Brad Weinstein M.D. Andie Ovalles M.D.
--- NOTE | ~2017-01-18 | EGD ---
EGD REPORT [facility] [address] [address] NAME: CESARIO CHAND : [birth year] STATUS : REG [facility]#: [id number] AGE: 71 ADM/REG DATE : 01/18/17 MR#: [id number] REPORT SERV DATE: 01/18/17 DICTATED BY: BRAD WEINSTEIN DATE: 01/18/17 REPORT STATUS : Draft [facility]ANSCRIBED [facility]: [facility] DATE: 01/18/17 Endoscopy Center Patient Name: Cesario Chand Date of : 1945 Attending MD: BRAD WEINSTEIN MD Procedure Date No Time: 01/18/2017 Procedure: Upper GI endoscopy Indications: Dysphagia Referring MD: WILL CESPEDES MD Medicines: Propofol per Anesthesia Complications: No immediate complications. Procedure: Pre-Anesthesia Assessment: - ASA Grade Assessment: III - A patient with severe systemic disease. After obtaining informed consent, the endoscope was passed under direct vision. Throughout the procedure, the patient's blood pressure, pulse, and oxygen saturations were monitored continuously. The GIF H190 [id number] was introduced through the mouth, and advanced to the third part of duodenum. The upper GI endoscopy was accomplished without difficulty. The patient tolerated the procedure well. Findings: A benign-appearing, intrinsic mild stenosis was found in the lower third of the esophagus and was traversed. A TTS dilator was passed through the scope. Dilation with a 15-16.5-18 mm balloon (to a maximum balloon size of 18 mm) dilator was performed. Estimated blood loss: none. Diffuse mildly congested mucosa was found in the entire examined stomach. Biopsies were taken with a cold forceps for histology. The examined duodenum was normal. Impression: - Benign-appearing esophageal stricture. Dilated. - Congestive gastropathy. Biopsied. - Normal examined duodenum. Biopsied. Procedure Code(s): --- Professional --- 58260, Esophagogastroduodenoscopy, flexible, transoral; with transendoscopic balloon dilation of esophagus (less than 30 mm diameter) 27070, Esophagogastroduodenoscopy, flexible, transoral; with biopsy, single or multiple Diagnosis Code(s): --- Professional --- K22.2, Esophageal obstruction EGD REPORT [facility] [address] [address] [place]. [address] NAME: CESARIO CHAND : [birth year] STATUS : REG [facility] PAT#: [id number] AGE: 71 ADM/REG DATE : 01/18/17 MR#: [id number] REPORT SERV DATE: 01/18/17 DICTATED BY: BRAD WEINSTEIN. DATE: 01/18/17 REPORT STATUS : Draft TRANSCRIBED BY: [facility] DATE: 01/18/17 K31.89, Other diseases of stomach and duodenum R13.10, Dysphagia, unspecified CPT copyright 2013 [employer]. All rights reserved. The codes documented in this report are preliminary and upon special services coordinator review may be revised to meet current compliance requirements. Brad Weinstein MD BRAD WEINSTEIN MD 01/18/2017 11:12 AM This report has been signed electronically. Number of Addenda: 0 Note Initiated On: 01/18/2017 9:56 AM Scope Withdrawal Time 0 hours 0 minutes 0 seconds [address] [facility] [address]
--- NOTE | ~2017-01-18 | EGD ---
EGD REPORT [facility] [address] [address] NAME: CESARIO CHAND : [birth year] STATUS : REG [facility]#: [id number] AGE: 71 ADM/REG DATE : 01/18/17 MR#: [id number] REPORT SERV DATE: 01/18/17 DICTATED BY: BRAD WEINSTEIN DATE: 01/18/17 REPORT STATUS : Draft [facility]: [facility] DATE: 01/18/17 Endoscopy Center Patient Name: Cesario Chand Date of : 1945 Attending MD: BRAD WEINSTEIN MD Procedure Date No Time: 01/18/2017 Procedure: Colonoscopy Indications: High risk colon cancer surveillance: Personal history of colonic polyps Referring MD: WILL CESPEDES MD Medicines: Propofol per Anesthesia Complications: No immediate complications. Procedure: Pre-Anesthesia Assessment: - ASA Grade Assessment: III - A patient with severe systemic disease. After I obtained informed consent, the scope was passed under direct vision. Throughout the procedure, the patient's blood pressure, pulse, and oxygen saturations were monitored continuously. The PCF H190L [id number] was introduced through the anus and advanced to the cecum, identified by appendiceal orifice and ileocecal valve. The colonoscopy was performed without difficulty. The patient tolerated the procedure well. The quality of the bowel preparation was excellent. Findings: A sessile polyp was found in the cecum. The polyp was 5 mm in size. The polyp was removed with a cold snare. Resection and retrieval were complete. A sessile polyp was found in the distal ascending colon. The polyp was 10 mm in size. The polyp was removed with a hot snare. Resection and retrieval were complete. A sessile polyp was found in the proximal ascending colon. The polyp was 5 mm in size. The polyp was removed with a hot snare. Resection and retrieval were complete. Three sessile polyps were found in the proximal transverse colon. The polyps were small in size. These polyps were removed with a hot snare. Resection and retrieval were complete. A sessile polyp was found at the hepatic flexure. The polyp was 3 mm in size. The polyp was removed with a cold biopsy forceps. Resection and retrieval were complete. A sessile polyp was found in the distal transverse colon. The polyp was 5 mm in size. The polyp was removed with a cold snare. Resection and retrieval were complete. Multiple small-mouthed diverticula were found in the sigmoid colon. EGD REPORT [address] [address] NAME: CESARIO CHAND : [birth year] STATUS : REG [facility] PAT#: [id number] AGE: 71 ADM/REG DATE : 01/18/17 MR#: [id number] REPORT SERV DATE: 01/18/17 DICTATED BY: BRAD WEINSTEIN DATE: 01/18/17 REPORT STATUS : Draft TRANSCRIBED BY: [employer] DATE: 01/18/17 Non-bleeding internal hemorrhoids were found during retroflexion and were moderate. Impression: - One 5 mm polyp in the cecum. Resected and retrieved. - One 10 mm polyp in the distal ascending colon. Resected and retrieved. - One 5 mm polyp in the proximal ascending colon. Resected and retrieved. - Three small polyps in the proximal transverse colon. Resected and retrieved. - One 3 mm polyp at the hepatic flexure. Resected and retrieved. - One 5 mm polyp in the distal transverse colon. Resected and retrieved. - Diverticulosis in the sigmoid colon. - Non-bleeding internal hemorrhoids. Recommendation: - Continue present medications. - The patient will be observed post-procedure, until all discharge criteria are met. - Await pathology results. - Repeat colonoscopy for surveillance based on pathology results. - The findings and recommendations were discussed with the patient and their spouse. - After the procedure, if you experience any pain in abdomen or chest,shortness of breath,fever,chills,blood in stool,rectal bleeding,vomiting of any material,nausea,black stools or weakness or dizziness, GO TO THE EMERGENCY IMMEDIATELY!!!!!!!!! Procedure Code(s): --- Professional --- 39161, Colonoscopy, flexible, proximal to splenic flexure; with removal of tumor(s), polyp(s), or other lesion(s) by snare technique 95448, 59, Colonoscopy, flexible, proximal to splenic flexure; with biopsy, single or multiple Diagnosis Code(s): --- Professional --- D12.3, Benign neoplasm of transverse colon D12.2, Benign neoplasm of ascending colon D12.0, Benign neoplasm of cecum K64.8, Other hemorrhoids K57.30, Diverticulosis of large intestine without perforation or abscess without bleeding Z86.010, Personal history of colonic polyps EGD REPORT [address] [place]. [address] NAME: CESARIO CHAND : [birth year] STATUS : REG [facility] PAT#: [id number] AGE: 71 ADM/REG DATE : 01/18/17 MR#: [id number] REPORT SERV DATE: 01/18/17 DICTATED BY: BRAD WEINSTEIN. DATE: 01/18/17 REPORT STATUS : Draft TRANSCRIBED BY: [employer] DATE: 01/18/17 CPT copyright 2013 [employer]. All rights reserved. The codes documented in this report are preliminary and upon dean of faculty review may be revised to meet current compliance requirements. Brad Weinstein MD BRAD WEINSTEIN MD 01/18/2017 11:20 AM This report has been signed electronically. Number of Addenda: 0 Note Initiated On: 01/18/2017 9:52 AM Scope Withdrawal Time 0 hours 29 minutes [address] [place] [address] [place] [address]
[~2017-01-18 08:22] MED LIST changes: +*UNABLE3; +REM15 PO; +TOUJEO
[2017-01-31] MEDS ORDERED: LEVOTHYROXIN175 MCG PO (15:37)
[2017-01-31] MEDS ORDERED: NXL3 PO (15:48)
[2017-01-31] MEDS ORDERED: DEMA20 PO (15:53)
[2017-01-31] MEDS ORDERED: NORCO1 TA1 PO (15:56)
[2017-01-31] MEDS ORDERED: INSNOVN SC (15:57)
[2017-01-31] MEDS ORDERED: INSNOVR SC (15:58)
== END 2017-01-18 23:59 | disposition home or self-care (01) ==
LOC: DMU 08:22
PROVIDERS: Internal Medicine Gastroenterology
PROC: 0D738ZZ Dilation of Lower Esophagus, Via Natural or Artificial Opening Endoscopic (ICD-10-PCS; 2017-01-18)
PROC: 0DBK8ZX Excision of Ascending Colon, Via Natural or Artificial Opening Endoscopic, Diagnostic (ICD-10-PCS; principal; 2017-01-18 14:00)
PROC: 0DBL8ZX Excision of Transverse Colon, Via Natural or Artificial Opening Endoscopic, Diagnostic (ICD-10-PCS; 2017-01-18 14:00)
PROC: 0DBH8ZX Excision of Cecum, Via Natural or Artificial Opening Endoscopic, Diagnostic (ICD-10-PCS; 2017-01-18 14:00)
PROC: 0DB68ZX Excision of Stomach, Via Natural or Artificial Opening Endoscopic, Diagnostic (ICD-10-PCS; 2017-01-18 14:00)
DX: Z12.11 Encounter for screening for malignant neoplasm of colon (principal); D12.3 Benign neoplasm of transverse colon; D12.0 Benign neoplasm of cecum; D12.2 Benign neoplasm of ascending colon; K22.2 Esophageal obstruction; K64.8 Other hemorrhoids; K57.30 Diverticulosis of large intestine without perforation or abscess without bleeding; E78.00 Pure hypercholesterolemia, unspecified; I27.2 Other secondary pulmonary hypertension; M19.90 Unspecified osteoarthritis, unspecified site; D64.9 Anemia, unspecified; N18.9 Chronic kidney disease, unspecified; E89.0 Postprocedural hypothyroidism; Z86.010 Personal history of colon polyps; Z79.4 Long term (current) use of insulin; Z79.899 Other long term (current) drug therapy; Z90.89 Acquired absence of other organs; Z90.49 Acquired absence of other specified parts of digestive tract; Z96.652 Presence of left artificial knee joint; Z98.890 Other specified postprocedural states
CPT/HCPCS: 82962; 88305; C1726

== ENCOUNTER 2017-02-12 14:02 | Inpatient (IN) | payer MEDICARE, OTHER ==
--- NOTE | ~2017-02-12 | CN ---
Consultation Report [facility] [address] [place]. [address] NAME: CESARIO CHAND : [birth year] STATUS : ADM IN PAT#: [id number] AGE: 71 ADM/REG DATE : 02/13/17 MR#: [id number] REPORT SERV DATE: 02/16/17 DICTATED BY: LUIS REID DATE: 02/16/17 REPORT STATUS : Draft TRANSCRIBED BY: MODL DATE: 02/16/17 CONSULT NOTE DATE OF CONSULTATION: 02/16/2017 CHIEF COMPLAINT: Dyspnea and concomitant hypoxemia. HISTORY OF PRESENT ILLNESS: Mrs. Cesario Chand is a medically complex 71-year-old white female with a past medical history significant for dysrhythmias, chronic kidney disease, and some degree of pulmonary hypertension, who presents to [facility]'s Emergency Room with complaints of worsening dyspnea of seven days duration. It should be noted that Mrs. Chand has been hospitalized several times already this year for a myriad of different complaints. Mrs. Chand is followed by Dr. Stratton in our outpatient Pulmonary Clinic. She has been prescribed Breo Ellipta in the past of which she is noncompliant. She describes her tobacco use is being quite remote, only smoking roughly a pack every week for a period of maybe six months before quitting. She largely denies symptomatology related to sleep apnea. She has had a formal polysomnography which does not demonstrate obstructive sleep apnea; however, increased periodic limb movements have been noted. She describes her exercise tolerance is being extremely limited, becoming short of breath, not performing any activities of daily living. Again, Mrs. Chand was hospitalized as recently as two weeks ago when she was treated for rectal bleeding secondary to hemorrhoids. She did eventually improve and transitioned home. More recently, she has had worsening shortness of breath and some concomitant lower extremity edema, which prompted her presentation to [facility]'s Emergency Room. Upon arrival, she was found to have an elevated heart rate. Oxygenation was 88% on 2 L. Her elevated BNP was noted. She had an equivocal white blood cell count. Creatinine was 1.12. She was seen by the Cardiology Service and received diuretics and eventually underwent a GLENN cardioversion under the care of Dr. Dubois with successful cardioversion. Unfortunately, she has had worsening hypoxemia and dyspnea throughout this short hospitalization. For the aforementioned reasons, she has been referred to the Pulmonary Service for further assessment. Currently, the patient is on 5 L to 6 L of supplemental oxygen with observable increased work of breathing. She does have some wheezing. She does have a dry nonproductive cough. She denies any recent fevers or purulent sputum production or exposures to sick contacts. As previously mentioned, the patient has known dysrhythmia. She has known hypertension as well as a previous history of pulmonary hypertension. She currently denies any worsening edema. In regard to constitutional symptoms, she currently denies fever, chills, nausea, vomiting, Consultation Report [place] [id number] [place]. [address] NAME: CESARIO CHAND : [birth year] STATUS : ADM IN [facility]#: [id number] AGE: 71 ADM/REG DATE : 02/13/17 MR#: [id number] REPORT SERV DATE: 02/16/17 DICTATED BY: LUIS REID DATE: 02/16/17 REPORT STATUS : Draft TRANSCRIBED BY: RANDALL DATE: 02/16/17 chest pain. PAST MEDICAL HISTORY: 1. Atrial fib, A-flutter. 2. Gastroesophageal reflux disease. 3. Hypothyroidism. 4. Hypertension. 5. Diabetes mellitus. 6. Chronic lower back pain. 7. Chronic kidney disease. 8. Anemia. 9. Pulmonary hypertension. 10.Restless legs syndrome. PAST SURGICAL HISTORY: 1. Left total knee replacement. 2. Partial hysterectomy. 3. Cholecystectomy. 4. Thyroidectomy. 5. . 6. Hemorrhoidectomy. FAMILY HISTORY: The patient denies family history of lung disease. SOCIAL HISTORY: The patient is . She has one child who is in good health. She previously worked at [employer]. She denies any overt exposures to dust, silica, or asbestos. TOBACCO/ALCOHOL: As previously mentioned, the patient had very remote smoking history. She denies any recent alcohol or illicit drug use. MEDICATIONS: 1. Atorvastatin 20 mg. 2. Carvedilol 25 mg. 3. Diltiazem 30 mg. 4. Hydrocodone 5/325. 5. Insulin. 6. Levothyroxine 175 mcg. 7. Nifedipine 30 mg. 8. Omeprazole 20 mg. 9. Mirapex 0.25 mg. 10.Torsemide 20 mg. 11.Warfarin 3 mg. ALLERGIES: THE PATIENT HAS APPARENTLY ALLERGY TO PDE5 INHIBITORS, ALTHOUGH SHE CANNOT Consultation Report [address] [address] NAME: CESARIO CHAND : [birth year] STATUS : ADM IN [facility]#: [id number] AGE: 71 ADM/REG DATE : 02/13/17 MR#: [id number] REPORT SERV DATE: 02/16/17 DICTATED BY: LUSI REID DATE: 02/16/17 REPORT STATUS : Draft TRANSCRIBED BY: MODL DATE: 02/16/17 REMEMBER THE SPECIFIC ALLERGY. REVIEW OF SYSTEMS: A complete review of systems was performed with pertinent positives and negatives contained within the body of the HPI. PHYSICAL EXAMINATION: VITAL SIGNS: Blood pressure is 154/85, heart rate is 57, T-max is 97.1, respiratory rate is 24, SpO2 is 91% on 6 L nasal cannula. GENERAL: Mrs. Cesario Chand is a 71-year-old white female, who is currently demonstrating some signs consistent with increased work of breathing. HEENT: Head, skull is normocephalic, atraumatic. No masses or lesions. Eyes, sclerae anicteric. Conjunctivae pink without exudates. Ears, auricles and tragus without pain to palpation. Nose, bilateral nasal patency. Throat, the patient has complete dentition in good repair. NECK: Supple. Trachea midline. No cervical lymphadenopathy appreciated. THORAX/LUNGS: Thorax is symmetric with equal chest rise. There are a few expiratory wheezes appreciated and diminished breath sounds in the lower lung urbina. CARDIOVASCULAR: Rate controlled. No gallop. ABDOMEN: Soft, nondistended, nontender. PERIPHERAL VASCULAR: No edema. MUSCULOSKELETAL: Full AROM and PROM in all joints. NEUROLOGIC: Cranial nerves 2 through 12 grossly intact. PSYCHIATRIC: The patient demonstrates good judgment and insight. The patient is alert and oriented x3. ACCESSORY DATA: Reveals a creatinine 1.82. BNP is 314.9. PTT, INR are 39.4 and 4.1. White blood cell count is 9900, hemoglobin and hematocrit 9.1 and 28.1. Chest x-ray reveals signs consistent with heart failure, pleural effusion, and increasing pulmonary edema. GLENN shows a left ventricular ejection fraction of 50%. Mild tricuspid regurg. Previous right ventricular systolic pressure has been noted to be [address] performed in December reveals a widened pulmonary artery. IMPRESSION: 1. Acute hypoxemic respiratory failure. 2. Volume overload. 3. Atrial fibrillation or flutter with rapid ventricular response, status post cardioversion. 4. Chronic kidney disease. 5. Pulmonary hypertension, intolerant of PDE5 agents. PLAN: 1. At this time, we will switch the patient to a high-flow nasal cannula. We will also write orders for a Vapotherm should she have worsening hypoxemia. In regard to the patient's volume overload, she has been aggressively diuresed with seemingly worsening Consultation Report [address] [address] NAME: CESARIO CHAND : [birth year] STATUS : ADM IN PAT#: [id number] AGE: 71 ADM/REG DATE : 02/13/17 MR#: [id number] REPORT SERV DATE: 02/16/17 DICTATED BY: LUIS REID DATE: 02/16/17 REPORT STATUS : Draft TRANSCRIBED BY: MODL DATE: 02/16/17 shortness of breath and hypoxemia. It may be reasonable at this point to involve our colleagues in Nephrology to help better guide further diuretic therapy. 2. In regard to the patient's arrhythmia, she is currently rate controlled. 3. In regard to the patient's chronic kidney disease, again she has worsening renal function with the aggressive diuretic regimen. 4. In regard to the patient's pulmonary hypertension, it may be reasonable to initiate an endothelin agent given her intolerance to PDE5 agents. We would need to the reference her previous right heart catheterization to definitively ensure that her pulmonary hypertension is out of proportion to her cardiac disease. The aforementioned impression and plan has been discussed with Dr. Salgado, who will follow further recommendations. We thank you for this consult look forward to participating in the care of Cesario Chand. GBS/MODL Luis Reid PA-C / [id number] CC: Andie Faria M.D.
--- NOTE | ~2017-02-12 | OP ---
Record Of Operation [facility] [address] [address] NAME: CESARIO RENTERIA : 45 STATUS : ADM IN PAT#: [id number] AGE: 71 ADM/REG DATE : 02/13/17 MR#: [id number] REPORT SERV DATE: 02/22/17 DICTATED BY: JAMARI STRATTON IV DATE: 02/22/17 REPORT STATUS : Draft TRANSCRIBED BY: RANDALL DATE: 02/22/17 DATE OF PROCEDURE: ADDENDUM: Total time seen is 55 minutes of critical care time, [id number] and [id number]; 55 minutes critical care time. JOSSIE/RANDALL Jamari Stratton IV, M.D. / [id number] CC: Oliver Wiggins M.D.
--- NOTE | ~2017-02-12 | DS ---
Discharge Summary [facility] [address] [place] [address] NAME: CESARIO RENTERIA : 45 STATUS : DIS IN PAT#: [id number] AGE: 71 ADM/REG DATE : 02/13/17 MR#: [id number] REPORT SERV DATE: 03/15/17 DICTATED BY: WILL WIGGINS DATE: 03/14/17 REPORT STATUS : Draft TRANSCRIBED BY: RANDALL DATE: 03/14/17 Data Collection from hospitalization DISCHARGE DIAGNOSES: 1. Atrial flutter, status post cardioversion. 2. Respiratory failure. 3. Acute kidney injury/chronic kidney disease. 4. Diabetes. 5. Hypertension. 6. Mild aortic stenosis. 7. Pulmonary hypertension. 8. Obstructive sleep apnea. 9. Hypothyroidism. CONSULTATION: 1. Luis Bernstein PA-C. 2. TRUMAN Aguero. 3. Kamran Stratton M.D. PROCEDURES: 1. Cardiac catheterization, 02/22/2017. 2. Laryngoscopic intubation with ventilator setup and placement of orogastric tube, 02/22/2017. 3. Abdominal ultrasound, 02/18/2017. 4. Venous Doppler ultrasound of the bilateral lower extremities. 5. DC cardioversion, 02/15/2017. DISCHARGE MEDICATIONS: Dilaudid OUTREACH TEAM MEMBER as instructed. Other medications as per Hospice. CONDITION AT DISCHARGE: Stable. DISPOSITION: The [facility] HOSPITAL COURSE: This is a 71-year-old female who had recently undergone hemorrhoid surgery. The week prior to this admission, she began to have a sensation of rapid heart rate and elevated blood pressure. Apparently, several medications had recently been discontinued including clonidine. She called the office with an elevated heart rate. She was told to get a Holter monitor apparently and was placed on Cardizem; however, she could not take it through the weekend and presented to the emergency room for evaluation. She was found to have some congestion on her chest x-ray and elevated BNP and a heart rate of 130. She was admitted to the hospital at this time for further evaluation and treatment. Upon admission, she did have some improvement after receiving Lasix in the emergency room, but she continued to have some breathlessness. She is on chronic oxygen at home. She had no complaints of angina, syncope, or presyncope. There was some component of orthopnea. White blood cell count was 10.2. Electrocardiogram revealed atrial flutter with 2:1 AV conduction. There was septal infarct pattern. Rate control was planned. We would transition her short-acting Cardizem to Cardizem CD. We would begin amiodarone. Cardizem Discharge Summary [facility] [address] [place]. [address] NAME: CESARIO RENTERIA : 45 STATUS : DIS IN PAT#: [id number] AGE: 71 ADM/REG DATE : 02/13/17 MR#: [id number] REPORT SERV DATE: 03/15/17 DICTATED BY: WILL WIGGINS DATE: 03/14/17 REPORT STATUS : Draft TRANSCRIBED BY: RANDALL DATE: 03/14/17 drip would be weaned back. We would use IV metoprolol as needed. Diuresis would be performed. We would continue anticoagulation with warfarin. Sliding scale insulin was started, and clonidine was resumed. The following day, the patient still have some shortness of breath. Her heart rate had improved with medical changes. She was changed to IV Bumex, it was going to be held n.p.o. after midnight except for medications. It was felt that she may need to undergo transesophageal echocardiogram with cardioversion. On the 02/15/2017, she still had marked dyspnea. It was doubtful that she would be able to function at home with this degree of respiratory distress. Blood pressure was stable at this time. The patient underwent DC cardioversion by Dr. Dubois. This was successful. The patient was now in a sinus rhythm. On 02/16/2017, she did have more dyspnea. She had no chest pain. She did have a bowel movement. INR level was 4.1. Amiodarone was stopped. She was changed to propafenone. The second dose of IV Bumex was held. Creatinine had increased to 1.8. She was seen by Luis Bernstein regarding dyspnea and concomitant hypoxemia. The patient has had increased and worsening hypoxemia and dyspnea throughout this short hospitalization. She was currently on 5-6 L of supplemental oxygen. She did have observable increased work of breathing. She did have some wheezing. She had a dry nonproductive cough. Creatinine level was 1.82. She was felt to have acute hypoxemic respiratory failure and volume overload. The patient was going to be switched to high-flow nasal cannula. Orders were going to be written for Vapotherm, should she have worsening hypoxemia. With regard to her volume overload, she had been aggressively diuresed with seemingly worsening shortness of breath and hypoxemia. It was felt, it may be reasonable at this point to involve Nephrology to better guide further diuretic therapy. She was currently rate controlled. She had worsening renal function with the aggressive diuretic regimen. It was felt reasonable to initiate endothelin agent given her intolerance to PDE5 agent with regard to her pulmonary hypertension. The following day, she was awake and alert. She was clinically approaching euvolemia. It was felt that it may be reasonable to decrease diuretics. She was in a normal sinus rhythm. She seemed more comfortable with her breathing, but was on higher O2. IV Bumex was held. Demadex was going to be resumed. Creatinine level had increased to 1.8. Clonidine was stopped as the patient said it made her cough. On 02/18/2017, she was seen by Rosemary Medina regarding acute kidney injury. Creatinine had increased to 2.3. Despite diuretic, it appeared that her weight had actually gone up. She had not really diuresed. Chest x-ray consistently has pleural effusions with mild edema. The acute kidney injury on chronic kidney disease was felt possibly related to diuretics; however, she really did not diurese very much if records were accurate. It was suspected that this was acute cardiorenal syndrome and maybe even some ATN from hypoxia. Urine studies were going to be checked. Albumin and Bumex were going to be given. On 02/19/2017, INR level had improved and was 2.9. Abdominal ultrasound was performed and was negative. She still had abdominal bloating. Her rhythm was stable thus far on propafenone. She had some increased shortness of breath. The next day, she was still short of breath. She was voiding a lot. She remained in a sinus rhythm. The patient has bilateral effusions. On 02/21/2017, acute hypoxemic respiratory failure was unchanged. Diuresis continued. White count was 15.1. Rocephin and azithromycin were continued. She had a good response to Bumex drip. Creatinine was now 1.48. INR level was 1.8. The next day, repeat bedside ultrasound was going to be performed to assess right-sided effusion. White count was 14.8. Discharge Summary [facility] [address] [place]. [address] NAME: CESARIO RENETRIA : 45 STATUS : DIS IN PAT#: [id number] AGE: 71 ADM/REG DATE : 02/13/17 MR#: [id number] REPORT SERV DATE: 03/15/17 DICTATED BY: WILL WIGGINS DATE: 03/14/17 REPORT STATUS : Draft TRANSCRIBED BY: RANDALL DATE: 03/14/17 She had increased work of breathing. The patient was seen by Dr. Kamran Stratton, regarding worsening respiratory status with hypoxemic respiratory failure and diffuse pulmonary infiltrates. The patient required intubation for worsening pulmonary infiltrates and to allow the patient to undergo a cardiac catheterization. The patient has severe pulmonary hypertension. Dulera was being given as well as DuoNeb. Procalcitonin level was going to be checked. Empiric antibiotics were continued. A tracheal aspirate was sent for Gram stain culture. It was felt the patient would need to undergo cardiac catheterization for measurement of the left ventricular end-diastolic pressure and right heart catheterization to measure both wedge and mean pulmonary artery pressures. Propofol was going to be given for sedation. Thyroid functions were going to be checked. TSH had been elevated earlier this year. Sliding scale insulin continued. Protonix was continued for GI prophylaxis. Magnesium and potassium supplementation were going to be given. Cardiac catheterization was performed. A venous Doppler ultrasound of the bilateral lower extremities was also obtained. There was no evidence of deep venous thrombosis. On 02/23/2017, creatinine level was 1.56. White count was 16.6. Tube feedings were going to begin. On 02/24/2017, creatinine level had increased to 1.91. White count had decreased to 7.3. INR level was 3.3. Over the next couple of days, she did have atrial flutter with rapid ventricular response. She was tachycardic and short of breath off the ventilator. She was on BiPAP. She had sluggish urine output. Her urine was dark colored despite Demadex. Creatinine had risen to 2.27 with decreased urine output. BUN was climbing. Spot urine studies were going to be obtained. She was dyspneic, but had no chest pain. Coumadin was continued. INR level was 3.9. On 02/26/2017, she was found to be C. difficile positive. She did have diarrhea. She had no chest pain or palpitations. Warfarin was continued. She was on BiPAP. Demadex was continued. The patient is a DNR code status. A hospice consult was requested. A [facility] liaison met with the patient and her spouse to discuss Services and philosophies. The patient was going to be admitted as an inpatient/acute. Discharge instructions were given. Due to her stable condition, she was discharged to [facility] with the above-stated instructions. Information collected by: Lalitha Pedersen I submit the above information as my discharge summary. TG/MODL Will Wiggins M.D. / [id number] CC: Andie Faria M.D. Jessica Craig, [facility]
--- NOTE | ~2017-02-12 | HP ---
History And Physical [address] [place]. [address] NAME: CESARIO CHAND : 45 STATUS : ADM Korin PAT#: [id number] AGE: 71 ADM/REG DATE : 02/12/17 MR#: [id number] REPORT SERV DATE: 02/12/17 DICTATED BY: ANJEL RAUSCH DATE: 02/12/17 REPORT STATUS : Draft TRANSCRIBED BY: MODL DATE: 02/12/17 DATE OF ADMISSION: 02/12/2017 CARDIOLOGY ADMISSION INDICATION: Shortness of breath and atypical atrial flutter with RVR. HISTORY OF PRESENT ILLNESS: Cesario Chand is a 71-year-old female followed in the office by Dr. Wiggins. She had recent hemorrhoid surgery. Then last week, she began to have sensation of a rapid heart rate and elevated blood pressure. Of note, apparently several medications have been recently discontinued including clonidine. She had called the office with elevated heart rate. She was told to get a Holter monitor apparently and placed on Cardizem. However, she could not make it through the weekend, now presents to the emergency room for evaluation. She is found to have some congestion on chest x-ray and elevated BNP and heart rate of 130. We were consulted for admission. The patient reports some slight improvement after receiving Lasix in the emergency room, but she continues to have breathlessness. She is on chronic oxygen at home. No complaints of angina. No syncope or presyncope. No jose martin edema or weight gain. There is some component of orthopnea. PAST MEDICAL HISTORY: Persistent atrial fibrillation with multiple previous ablations. She reports three ablations, however, I am not sure of what was targeted with those procedures. She has history of atypical atrial flutter and actually now present in atypical atrial flutter. Other history is valvular heart disease with moderate mitral anulus calcification. History of lymphedema. History of hyperlipidemia. History of diabetes, on insulin pump. Chronic kidney disease. Pulmonary hypertension. Obesity. Thyroid nodule. Chronic pain. HOME MEDICATION LIST: In [facility] home medicine form and reviewed. ALLERGIES: SOME UNSPECIFIED HYPERTENSION MEDICATIONS. SOCIAL HISTORY: No smoking. No alcohol. Lives with spouse. FAMILY HISTORY: Notable for previous CVA under family. REVIEW OF SYSTEMS: As per the HPI. Otherwise, again, with labile blood pressures and palpitations and arrhythmia, shortness of breath. Otherwise, all other review of systems negative. PHYSICAL EXAMINATION: VITAL SIGNS: Blood pressure 139/93, pulse 122, oxygen saturation is 88% on room air on presentation. The patient is currently afebrile. GENERAL: Anxious female in mild respiratory distress. EYES: Sclerae anicteric, no arcus senilis. MOUTH: Oral mucosa moist, lips acyanotic. History And Physical [address] [address] NAME: CESARIO CHAND : 45 STATUS : ADM Korin PAT#: [id number] AGE: 71 ADM/REG DATE : 02/12/17 MR#: [id number] REPORT SERV DATE: 02/12/17 DICTATED BY: ANJEL RAUSCH DATE: 02/12/17 REPORT STATUS : Draft TRANSCRIBED BY: RANDALL DATE: 02/12/17 NECK: Jugular venous pressure normal, no carotid bruits. LUNGS: Bilateral breath sounds markedly diminished. CARDIAC: Regular tachycardic rhythm. ABDOMEN: Soft, nondistended, nontender. EXTREMITIES: No edema. SKIN: Warm and dry. NEURO/PSYCH: Alert and oriented, nonfocal, mood appropriate. DATA: BNP 457, creatinine 1.1, potassium 3.5, sodium 141. Troponin less than 0.02. White count 10.2, hemoglobin 10.5, platelets 205. INR 2.3. Electrocardiogram is atrial flutter with 2:1 AV conduction. Septal infarct pattern. IMPRESSION: 1. Atrial flutter with rapid ventricular response leading to vascular congestion on chest x-ray. 2. History of persistent atrial fibrillation and previous ablation. 3. Diabetes. RECOMMENDATIONS: Plan for rate control. We will transition her short-acting Cardizem to Cardizem CD 120 daily. Begin amiodarone 200 mg p.o. b.i.d. Wean back Cardizem drip. Use as needed IV metoprolol. Diuresis. Continue anticoagulation with warfarin. Sliding scale insulin. Resume clonidine at 0.1 mg p.o. b.i.d. LINDA/RANDALL Anjel Rausch M.D. / [id number] CC: Andie Faria M.D.
--- NOTE | ~2017-02-12 | CN ---
Consultation Report [facility] [address] [place]. [address] NAME: CESARIO CHAND : 45 STATUS : ADM IN PAT#: [id number] AGE: 71 ADM/REG DATE : 02/13/17 MR#: [id number] REPORT SERV DATE: 02/22/17 DICTATED BY: JAMARI STRATTON IV DATE: 02/22/17 REPORT STATUS : Draft TRANSCRIBED BY: RANDALL DATE: 02/22/17 CRITICAL CARE CONSULT DATE OF CONSULTATION: 02/22/2017 REASON FOR REQUEST: Worsening respiratory status with hypoxemic respiratory failure and diffuse pulmonary infiltrates. HISTORY OF PRESENT ILLNESS: History is obtained from the records and the patient. Ms. Chand is a 71-year-old female with a history of atrial flutter/fibrillation, pulmonary hypertension, hypothyroidism, diabetes mellitus, chronic kidney disease, restless legs syndrome, nocturnal hypoxemia, and cough, who was admitted on 02/13/2017 with worsening shortness of breath and pulmonary infiltrates most consistent with cardiogenic edema, however, not responsive to diuretic therapy. The patient has had several recent hospitalizations to include for nausea and vomiting and most recently for tachydysrhythmia. She has undergone several cardiac ablations in the past. She had documented pulmonary hypertension on previous right heart catheterization. She underwent a CT angiogram of the chest earlier this year demonstrating no evidence for chronic thromboembolic disease and had recent bilateral lower extremity ultrasounds demonstrating no evidence for DVT. She is on chronic Coumadin therapy. She presented on 02/13/2017 with worsening shortness of breath with progressive infiltrates most consistent with cardiogenic edema with what appears to be bilateral pleural effusions. She has been aggressively diuresed without a good clinical response. There is concern about the etiology for her worsening infiltrates and hypoxemic respiratory failure for which there is consideration for cardiac catheterization. Her current respiratory status would not allow this, so she underwent reversal of her DNR status for intubation in a transient attempt to find a reversible process. She was recently started on antibiotic therapy for a mildly elevated procalcitonin level though has had no fevers, chills, or sweats. She has mildly elevated white blood cell count. The patient has been given bronchodilator medications in the past, which she is currently not compliant. She does have nocturnal hypoxemia for which she uses supplemental oxygen at nighttime only. PULMONARY HISTORY: Remarkable for no history of childhood asthma or proven adult obstructive lung disease. She has been given an inhaled corticosteroid because of cough with clinical response. She has had pneumonia in the past. She is a nonsmoker. She is up to date on her immunizations. PAST MEDICAL HISTORY: 1. Atrial fibrillation/flutter. 2. Pulmonary hypertension. 3. Hypothyroidism. 4. Diabetes mellitus. 5. Chronic kidney disease. 6. Restless legs syndrome. 7. Nocturnal hypoxemia. Consultation Report [address] [place]. [address] NAME: CESARIO CHAND : 45 STATUS : ADM IN PAT#: [id number] AGE: 71 ADM/REG DATE : 02/13/17 MR#: [id number] REPORT SERV DATE: 02/22/17 DICTATED BY: JAMARI STRATTON IV DATE: 02/22/17 REPORT STATUS : Draft TRANSCRIBED BY: RANDALL DATE: 02/22/17 PAST SURGICAL HISTORY: 1. The patient has undergone cardiac ablations on two occasions. 2. Left total knee replacement. 3. Partial hysterectomy. 4. Cholecystectomy. 5. Thyroidectomy. 6. . 7. Hemorrhoidectomy. ALLERGIES: LISTED ARE ADCIRCA THOUGH SHE IS UNCLEAR OF THE SPECIFIC ALLERGY. CURRENT MEDICATIONS: Cardizem CD 120 mg daily, Coreg 3.125 mg daily, Coumadin 2.5 mg daily, Demadex 40 mg twice a day, DuoNeb q.4 hours while awake, Florastor 1 twice a day, Flolan for the procedure, Lipitor 20 mg at bedtime, Mirapex 0.5 mg at bedtime, NovoLog level 2 insulin sliding scale, Procardia 30 mg daily, Protonix 40 mg twice a day, Rocephin 1 g q.24 hours, Rythmol 150 mg three times a day, Synthroid 200 mcg daily, and azithromycin 250 mg daily. SOCIAL HISTORY: Remarkable for no tobacco, alcohol, or illicit drug use. She is . Has a child. She previously worked at [employer]. FAMILY HISTORY: Remarkable for no history of significant interstitial or obstructive lung disease. REVIEW OF SYSTEMS: 14 systems reviewed and pertinent positives as noted above. PHYSICAL EXAMINATION: GENERAL: This is a chronically ill, small, elderly female, in least moderate respiratory distress. She is on BiPAP. VITAL SIGNS: Temperature 97.1, pulse is 90, respiratory rate is 36, saturation 93% on 100% on BiPAP, and blood pressure is 157/81. HEENT: The patient is normocephalic, atraumatic. Extraocular movements are intact. Pupils react to light. Sclerae and conjunctivae are normal. Mouth is examined at the time of her intubation demonstrating no significant lesions. She has a Mallampati II airway. NECK: Without any palpable lymphadenopathy or thyromegaly. CHEST: The patient has decreased breath sounds at both bases. There are a few basilar inspiratory crackles. No current wheezes or rhonchi are noted. CARDIOVASCULAR: Jugular venous pulsations. The angle of jaw in the semi-recumbent position. She has a distant regular S1, S2 with no clear murmur or S3. Peripheral pulses are diminished. Carotid upstrokes are 1+. There is no obvious bruit. ABDOMEN: Soft, nontender. There are hypoactive bowel sounds. There is no palpable hepatosplenomegaly or mass. Surgical scars are noted. EXTREMITIES: Demonstrate trace pretibial edema. There is no cyanosis, clubbing, or palpable cords. Consultation Report [address] [place]. [address] NAME: CESARIO CHAND : 45 STATUS : ADM IN [facility]#: [id number] AGE: 71 ADM/REG DATE : 02/13/17 MR#: [id number] REPORT SERV DATE: 02/22/17 DICTATED BY: JAMARI STRATTON IV DATE: 02/22/17 REPORT STATUS : Draft TRANSCRIBED BY: RANDALL DATE: 02/22/17 NEUROLOGIC: The patient is able to converse and move all extremities. LABORATORY DATA: Chest x-ray demonstrates a prominent cardiac silhouette with what appears to be right greater than left pleural effusions with bilateral increased interstitial markings, most consistent with edema. CBC: Hemoglobin 10.9, hematocrit 34.1, platelet count was 207,000, and white blood cell count is 14.8. INR is 1.9. Chemistry: Sodium 142, potassium 3.7, chloride 103, bicarb 36, BUN 32, creatinine 1.45, glucose 135, magnesium is 1.6, phos is 2.7. Most recent blood gas is pH 7.40, pCO2 of 56, pO2 of 108. ASSESSMENT AND PLAN: 1. Respiratory. The patient was intubated for worsening pulmonary infiltrates and to allow the patient to undergo cardiac procedure. Chest x-ray will be obtained post intubation. Blood gas will be obtained tomorrow. The patient be given Dulera 5 puffs twice a day with DuoNeb continued q.4 hours. 2. Infectious disease. Procalcitonin level will be added above in the lab. The patient remained on the empiric antibiotic therapy. Tracheal aspirate was sent for Gram stain culture. 3. Hematologic. Coumadin per Pharmacy. 4. Cardiovascular. The patient will go to the phlebotomist lab assistant for measurement of the left ventricular end-diastolic pressure, right heart catheterization to measure both wedge and mean pulmonary artery pressures. Further management will depend on results of the study. 5. Neurologic. Propofol for sedation. 6. Endocrinologic. Thyroid functions will be obtained with a high TSH earlier this year. The patient can remain on insulin sliding scale. 7. Gastrointestinal. Tube placement will be confirmed with KUB. She will be given vital HP at 20 mL an hour. Protonix will be continued for gastrointestinal prophylaxis. 8. Renal. We will replace the patient's magnesium and potassium with 20 mEq. Repeat labs in the morning. Thank you for consulting us. We will follow the patient with you. JOSSIE/RANDALL Jamari Stratton IV, M.D. / [id number] CC: Consultation Report [address] [address] NAME: CESARIO CHAND : 45 STATUS : ADM IN [facility]#: [id number] AGE: 71 ADM/REG DATE : 02/13/17 MR#: [id number] REPORT SERV DATE: 02/22/17 DICTATED BY: JAMARI STRATTON IV DATE: 02/22/17 REPORT STATUS : Draft TRANSCRIBED BY: RANDALL DATE: 02/22/17 Oliver Wiggins M.D.
--- NOTE | ~2017-02-12 | TEE ---
Transesophageal Echocardiogram [facility] [address] [place]. [address] NAME: CESARIO RENTERIA : 45 STATUS : ADM IN [facility]#: [id number] AGE: 71 ADM/REG DATE : 02/13/17 MR#: [id number] REPORT SERV DATE: 02/15/17 DICTATED BY: DATE: REPORT STATUS : Draft TRANSCRIBED BY: MODL DATE: 02/15/17 CHIEF COMPLAINT/REASON FOR STUDY: Atrial flutter. Written informed consent obtained. Please see chart for documentation. With the assistance of my Anesthesia colleagues, Mrs. Renteria was sedated with IV propofol. The transesophageal probe was placed without complication. It was withdrawn postprocedure. Salient 2D, color flow, and spectral Doppler echocardiographic images were obtained. 1. The left ventricular systolic function is grossly normal with a visually estimated ejection fraction greater than 50%. 2. The right ventricle appears mildly dilated with mildly decreased systolic function. 3. The left atrium was mildly dilated. There was no evidence of left atrial thrombus. 4. The right atrium was dilated. There was no evidence of right atrial thrombus. 5. There was no evidence of atrial septal defect or patent foramen ovale with color-flow Doppler imaging. 6. The left atrial appendage was interrogated at multiple levels and depths. Definity contrast was also used to verify that there was no left atrial appendage thrombus present. Doppler velocities within the left atrial appendage were low measuring between 8 and 10 cm/sec. 7. The mitral valve was structurally normal without evidence of stenosis. There was trivial color flow evidence of mitral valvular regurgitation. 8. The tricuspid valve was structurally normal without evidence of stenosis. There was mild color flow evidence of tricuspid valve regurgitation. 9. The aortic valve was normal, trileaflet, without evidence of stenosis or significant regurgitation via color Doppler imaging. 10.The pulmonary valve was normal without evidence of stenosis or regurgitation via color flow imaging. 11.There was a trivial pericardial effusion without hemodynamic significance. 12.There was a left-sided pleural effusion noted. 13.There was moderate atherosclerosis of the thoracic aorta noted. Following verification, no thrombus present, DC cardioversion was performed 200 joules x1 with return to sinus rhythm. IMPRESSION: Successful DC cardioversion. LUÍS/RANDALL Ximena Dubois M.D. / [id number] CC: Andie Faria M.D.
--- NOTE | ~2017-02-12 | CN ---
Consultation Report [facility] [address] [place]. [address] NAME: CESARIO CHAND : 45 STATUS : ADM IN PAT#: [id number] AGE: 71 ADM/REG DATE : 02/13/17 MR#: [id number] REPORT SERV DATE: 02/18/17 DICTATED BY: DATE: REPORT STATUS : Draft TRANSCRIBED BY: MODL DATE: 02/18/17 CONSULTATION DATE OF CONSULTATION: REASON FOR CONSULTATION: Acute kidney injury. HISTORY OF PRESENT ILLNESS: Ms. Chand is a 71-year-old, white female, with a history of CKD, followed in the office by Dr. Galloway, with a baseline GFR of 30 to 40 per her recollection. She is in the hospital at this time and admitted with shortness of breath, atypical aflutter, had to be cardioverted. She has also had a vascular congestion on chest x-ray and diurese. Her creatinine has increased from 1.1 to 2.3 today, and this happened over the last five to six days, and we were asked to see her in consultation. Despite diuretic, it looks as though her weight has actually gone up. When I looked at I's and O's, she really has not diuresed. Her chest x-ray consistently has pleural effusions with mild edema and she is becoming increasingly more hypoxic now up to 30 L of O2. On Vapotherm. She states her shortness of breath is significant with just minimal exertion of getting it. Denies any dysuria or hematuria. No nausea, vomiting, or diarrhea. Edema to lower extremities are actually better. She does have increased abdominal girth. PAST MEDICAL HISTORY: CKD stage 3 to 4, pulmonary hypertension, dysrhythmias, aflutter, status post cardioversion earlier in this hospitalization, type 2 diabetes, hypertension, atrial fibrillation, diastolic heart failure, EF of 55 to 60, right ventricular systolic pressure of 35, reflux, cough, hyperlipidemia, restless legs syndrome, hypothyroidism, she has had cholecystectomy, hysterectomy, and left knee surgery. FAMILY MEDICAL HISTORY: Positive for diabetes hypertension and coronary artery disease. SOCIAL HISTORY: She is . History of tobacco use. No alcohol or illicit drug use. ALLERGIES: SOME HYPERTENSION MEDICATIONS. MEDICATIONS: Medications at this time Demadex, Coumadin, Mirapex, Protonix, Procardia, Synthroid, NovoLog, Cardizem, Coreg, and Lipitor. REVIEW OF SYSTEMS: 12-point review of systems was obtained, negative with the exception that in the HPI. PHYSICAL EXAMINATION: VITAL SIGNS: Temperature 96.5, blood pressure 125/78, pulse 64, respiratory rate 20, O2 saturation is 94% on 30 L via Vapotherm. GENERAL: This is an ill-appearing white female. She is awake, alert, sitting up in bed, eating lunch, and in no acute distress. Respirations are even and unlabored with just sitting. Consultation Report [facility] [id number] [place]. [address] NAME: CESARIO CHAND : 45 STATUS : ADM IN PAT#: [id number] AGE: 71 ADM/REG DATE : 02/13/17 MR#: [id number] REPORT SERV DATE: 02/18/17 DICTATED BY: DATE: REPORT STATUS : Draft TRANSCRIBED BY: MODMitali DATE: 02/18/17 HEENT: Normocephalic and atraumatic. Conjunctivae clear. Sclerae anicteric. Pupils are equal and round. Oral mucosa is dry. NECK: Thick. Supple. I did not hear any bruits. Neck veins are flat. LUNGS: Respirations are even and unlabored while sitting and talking during exam and decreased right base. HEART: Heart rate regular. No murmur, rub, or gallop. ABDOMEN: Soft and nontender. No CVA tenderness. BACK: Within normal limits. EXTREMITIES: No edema, cyanosis, or clubbing. SKIN: Pale, warm, dry, and intact. No unusual rashes or skin lesions. NEURO: No focal deficits. Mood and affect, pleasant and appropriate. PERTINENT LABS AND X-RAYS: She already had an abdominal ultrasound and it just reveals some thinning of the left renal cortex, no obstruction, minimal bilateral pleural effusions. Sodium 138, potassium 4.83, chloride 103, CO2 of 26, BUN 44, creatinine of 2.39, calcium 8.8, albumin of 2.7, bilirubin 0.4, alk phosphatase 318, SGOT of 242, SGPT of 32, ammonia 29. Her chest x-ray reveals bilateral pleural effusions right greater than left and some mild pulmonary edema. BNP of 346. IMPRESSION: 1. Acute kidney injury. 2. Chronic kidney disease stage 3 to 4. 3. Acute hypoxic respiratory failure. 4. Atrial fibrillation. 5. Bilateral pleural effusions. 6. Diastolic heart failure. 7. Type 2 diabetes. PLAN/RECOMMENDATION: Acute kidney injury on CKD, question could be related to diuretics, however, when I look at I's and O's and weight, she really did not diurese very much if these are accurate. So, suspect that this is acute cardiorenal syndrome, may be even some ATN from hypoxia. Her chest x-ray remained the same. We will check urine studies. Add albumin and some Bumex. Follow I's and O's and labs. I wonder if she would benefit from a thoracentesis. Pulmonary is following. We will follow along with you. Thank you for the consultation. MADELEINE/RANDALL TRUMAN Aguero / [id number] Consultation Report [address] [address] NAME: CESARIO CHAND : 45 STATUS : ADM IN PAT#: [id number] AGE: 71 ADM/REG DATE : 02/13/17 MR#: [id number] REPORT SERV DATE: 02/18/17 DICTATED BY: DATE: REPORT STATUS : Draft TRANSCRIBED BY: RANDALL DATE: 02/18/17 CC: Andie Faria M.D.
--- NOTE | ~2017-02-12 | OP ---
Record Of Operation [facility] [address] [place]. [address] NAME: CESARIO RENTERIA : 45 STATUS : ADM IN [facility]#: [id number] AGE: 71 ADM/REG DATE : 02/13/17 MR#: [id number] REPORT SERV DATE: 02/22/17 DICTATED BY: JAMARI STRATTON IV DATE: 02/22/17 REPORT STATUS : Draft TRANSCRIBED BY: RANDALL DATE: 02/22/17 DATE OF PROCEDURE: 02/22/2017 PREOPERATIVE DIAGNOSIS: Hypoxemic respiratory failure on BiPAP with need for cardiac catheterization. POSTOPERATIVE DIAGNOSIS: Hypoxemic respiratory failure on BiPAP with need for cardiac catheterization. PROCEDURE: Laryngoscopic intubation in ventilator setup and placement of an orogastric tube. CONTRAINDICATIONS: None. CONSENT: The patient had been a DNR, though agreed to proceed with intubation to allow the procedure to be performed to see if there is reversible process. The agreement was that this would not be a prolonged intubation. PREOPERATIVE LABS: The patient's platelet count was 207,000, INR was 1.9. METHOD: All equipment was made available and the patient was brought to the head of the bed. She is on BiPAP 100% FiO2 with saturations in the low 90% range. The patient was placed in a supine position. She was given 20 mg of etomidate IV. As she began to relax, the BiPAP was removed and the patient was Ambu bag ventilated with saturations in the high 90% range. The curved laryngoscopic blade was used to visualize the patient's vocal cords. She did have some coughing, but with the 7.5 endotracheal tube was timed, placed through the vocal cords without difficulty. There was appropriate color change on the CO2 monitor and bilateral breath sounds were noted. The patient was Ambu bag ventilated with oxygen saturations to the 100% range. Once the tube was secured at 19 cm at the lip, the orogastric tube was placed and secured at 55 cm. There was appropriate sound over the abdomen with flushing the catheter. Both catheters placement will be confirmed on radiographs. There was noted blood loss with either procedure. She tolerated the procedure well. JOSSIE/RANDALL Jamari Stratton IV, M.D. / [id number] CC: Oliver Wiggins M.D.
[~2017-02-12 14:02] MED LIST changes: +DEMA20 PO; +LEVOTHYROXIN175 MCG PO; +NXL3 PO
[2017-02-12 15:30] LABS: HEMATOCRIT 32.2 % (36.0-48.0); HEMOGLOBIN 10.5 g/dL (12.0-16.0); MANUAL DIFF YES %; MEAN CORPUS HGB CONC 32.6 g/dL (32.0-36.0); MEAN CORPUSCULAR HEMOGLOB 28.5 pg (26.0-34.0); MEAN CORPUSCULAR VOLUME 87.3 fL (80-100); MEAN PLATELET VOLUME 9.1 fL (9.2-13.0); PLATELET COUNT 205 10/3/uL (150-400); RBC DISTRIBUTION WIDTH 16.5 % (12.0-16.0); RED CELL COUNT 3.69 10/6/uL (4.0-5.6); WHITE BLOOD CELLS 10.2 10/3/uL (4.5-10.5)
[2017-02-12 15:41] LABS: INTERNATIONAL NORMAL RATI 2.3 UNITS (-)
[2017-02-12] MEDS ORDERED: PRILO PO (15:41)
[2017-02-12 15:42] LABS: PARTIAL THROMBO TIME 60.6 SEC (22.5-37.2)
[2017-02-12] MEDS ORDERED: NORCO1 TA1 PO (15:42)
[2017-02-12] MEDS ORDERED: SYNTHROID175 MCG PO (15:43)
[2017-02-12] MEDS ORDERED: COREG25 PO (15:44)
[2017-02-12] MEDS ORDERED: SYNTHROID200 MCG PO (15:44)
[2017-02-12] MEDS ORDERED: JANTOVEN3 MG PO (15:44)
[2017-02-12] MEDS ORDERED: MIRAPEX250 PO (15:45)
[2017-02-12 15:46] LABS: BUN (BLOOD UREA NITROGEN) 21 MG/DL (6-23); CALCIUM, SERUM 9.3 MG/DL (8.5-10.4); CHEST PAIN PROFILE TAT 0 Hrs 20 Mins; CHLORIDE, SERUM 106 MMOL/L (96-112); CO2 (CARBON DIOXIDE) 30 MMOL/L (24-34); CREATININE 1.12 MG/DL (0.55-1.02); GFR AFRICAN AMERICAN 57 ML/MIN (>=60); GFR NON AFRICAN AMERICAN 49 ML/MIN (>=60); GLUCOSE, SERUM 110 MG/DL (60-99); POTASSIUM, SERUM 3.5 MMOL/L (3.5-5.3); SODIUM, SERUM 143 MMOL/L (135-148); TROPONIN I <0.02 NG/ML (<0.05)
[2017-02-12] MEDS ORDERED: NXL3 PO (15:46)
[2017-02-12] MEDS ORDERED: CARD30 PO (15:47)
[2017-02-12] MEDS ORDERED: LIPITOR20 PO (15:48)
[2017-02-12] MEDS ORDERED: DEMA20 PO (15:48)
[2017-02-12 15:52] LABS: ANISOCYTOSIS 1+ (5-10/OIF) (0-5/OIF); BAND NEUTROPHILS 11 %; ER DIFF TAT 0 Hrs 26 Mins; LYMPHOCYTES 11 %; LYMPHOCYTES ABSOLUTE (CALC) 1.12 10/3/uL (0.67-4.30); MONOCYTES 3 %; MONOCYTES ABSOLUTE (CALC) 0.31 10/3/uL (0.21-1.20); NEUTROPHILS ABSOLUTE (CALC) 8.77 10/3/uL (2.02-8.40); PLATELET ESTIMATE ADQ (ADEQUATE); SEGMENTED NEUTROPHIL (0) 75 %; TOTAL NUCLEATED CELLS 100
[2017-02-12 15:54] LABS: POLYCHROMASIA 1+ (2-5/OIF) (0-1/OIF)
[2017-02-12] MEDS ORDERED: AUG500 PO (15:54)
[2017-02-12] MEDS ORDERED: INSNOVN SC (15:57)
[2017-02-12] MEDS ORDERED: INSNOVR SC (16:00)
[2017-02-13 02:45] LABS: BASOPHILS 0.3 %; BASOPHILS ABSOLUTE 0.03 10/3/uL (0.0-0.16); EOSINOPHILS 1.1 %; EOSINOPHILS ABSOLUTE 0.13 10/3/uL (0.0-0.53); HEMATOCRIT 29.1 % (36.0-48.0); HEMOGLOBIN 9.3 g/dL (12.0-16.0); IMMATURE GRANULOCYTES 0.8 %; IMMATURE GRANULOCYTES ABSOLUTE 0.09 10/3/uL (0.0-0.11); LYMPHOCYTES 8.8 %; LYMPHOCYTES ABSOLUTE 1.03 10/3/uL (0.67-4.30); MANUAL DIFF NO %; MEAN CORPUSCULAR HEMOGLOB 28.4 pg (26.0-34.0); MEAN CORPUSCULAR VOLUME 88.7 fL (80-100); MEAN PLATELET VOLUME 9.2 fL (9.2-13.0); MONOCYTES 5.2 %; MONOCYTES ABSOLUTE 0.61 10/3/uL (0.21-1.20); NEUTROPHILS 83.8 %; PLATELET COUNT 202 10/3/uL (150-400); RBC DISTRIBUTION WIDTH 16.8 % (12.0-16.0); RED CELL COUNT 3.28 10/6/uL (4.0-5.6); WHITE BLOOD CELLS 11.7 10/3/uL (4.5-10.5)
[2017-02-13 02:54] LABS: INTERNATIONAL NORMAL RATI 2.1 UNITS (-); PROTIME (NOT ORD) 23.6 SEC (12.0-14.5)
[2017-02-13 03:05] LABS: BUN (BLOOD UREA NITROGEN) 22 MG/DL (6-23); CALCIUM, SERUM 8.9 MG/DL (8.5-10.4); CHLORIDE, SERUM 108 MMOL/L (96-112); CO2 (CARBON DIOXIDE) 27 MMOL/L (24-34); CREATININE 1.37 MG/DL (0.55-1.02); GFR AFRICAN AMERICAN 45 ML/MIN (>=60); GFR NON AFRICAN AMERICAN 39 ML/MIN (>=60); SODIUM, SERUM 143 MMOL/L (135-148); TROPONIN I <0.02 NG/ML (<0.05)
[2017-02-13 03:06] LABS: GLUCOSE, SERUM 146 MG/DL (60-99); POTASSIUM, SERUM 4.8 MMOL/L (3.5-5.3)
[2017-02-14 06:33] LABS: BASOPHILS 0.2 %; BASOPHILS ABSOLUTE 0.02 10/3/uL (0.0-0.16); EOSINOPHILS 1.7 %; EOSINOPHILS ABSOLUTE 0.16 10/3/uL (0.0-0.53); HEMATOCRIT 29.2 % (36.0-48.0); HEMOGLOBIN 9.2 g/dL (12.0-16.0); IMMATURE GRANULOCYTES 0.6 %; IMMATURE GRANULOCYTES ABSOLUTE 0.06 10/3/uL (0.0-0.11); LYMPHOCYTES 10.5 %; MANUAL DIFF NO %; MEAN CORPUS HGB CONC 31.5 g/dL (32.0-36.0); MEAN CORPUSCULAR HEMOGLOB 28.1 pg (26.0-34.0); MEAN CORPUSCULAR VOLUME 89.3 fL (80-100); MONOCYTES 5.3 %; NEUTROPHILS 81.7 %; NEUTROPHILS ABSOLUTE 7.75 10/3/uL (2.02-8.40); PLATELET COUNT 208 10/3/uL (150-400); RBC DISTRIBUTION WIDTH 16.8 % (12.0-16.0); RED CELL COUNT 3.27 10/6/uL (4.0-5.6); WHITE BLOOD CELLS 9.5 10/3/uL (4.5-10.5)
[2017-02-14 06:40] LABS: INTERNATIONAL NORMAL RATI 2.6 UNITS (-); PROTIME (NOT ORD) 27.5 SEC (12.0-14.5)
[2017-02-14 06:50] LABS: BUN (BLOOD UREA NITROGEN) 24 MG/DL (6-23); CALCIUM, SERUM 9.4 MG/DL (8.5-10.4); CHLORIDE, SERUM 107 MMOL/L (96-112); CO2 (CARBON DIOXIDE) 27 MMOL/L (24-34); CREATININE 1.46 MG/DL (0.55-1.02); GFR AFRICAN AMERICAN 42 ML/MIN (>=60); GFR NON AFRICAN AMERICAN 36 ML/MIN (>=60); GLUCOSE, SERUM 128 MG/DL (60-99); POTASSIUM, SERUM 3.9 MMOL/L (3.5-5.3); SODIUM, SERUM 141 MMOL/L (135-148)
[2017-02-15 05:29] LABS: BASOPHILS 0.2 %; BASOPHILS ABSOLUTE 0.02 10/3/uL (0.0-0.16); EOSINOPHILS 1.7 %; EOSINOPHILS ABSOLUTE 0.17 10/3/uL (0.0-0.53); HEMATOCRIT 28.1 % (36.0-48.0); HEMOGLOBIN 9.1 g/dL (12.0-16.0); IMMATURE GRANULOCYTES 0.6 %; IMMATURE GRANULOCYTES ABSOLUTE 0.06 10/3/uL (0.0-0.11); LYMPHOCYTES 10.7 %; LYMPHOCYTES ABSOLUTE 1.05 10/3/uL (0.67-4.30); MEAN CORPUS HGB CONC 32.4 g/dL (32.0-36.0); MEAN CORPUSCULAR HEMOGLOB 28.5 pg (26.0-34.0); MEAN CORPUSCULAR VOLUME 88.1 fL (80-100); MEAN PLATELET VOLUME 9.1 fL (9.2-13.0); MONOCYTES 5.6 %; MONOCYTES ABSOLUTE 0.55 10/3/uL (0.21-1.20); NEUTROPHILS 81.2 %; PLATELET COUNT 202 10/3/uL (150-400); RBC DISTRIBUTION WIDTH 16.5 % (12.0-16.0); RED CELL COUNT 3.19 10/6/uL (4.0-5.6); WHITE BLOOD CELLS 9.9 10/3/uL (4.5-10.5)
[2017-02-15 05:30] LABS: MANUAL DIFF NO %
[2017-02-15 05:39] LABS: INTERNATIONAL NORMAL RATI 3.3 UNITS (-); PROTIME (NOT ORD) 33.6 SEC (12.0-14.5)
[2017-02-15 05:45] LABS: BUN (BLOOD UREA NITROGEN) 25 MG/DL (6-23); CALCIUM, SERUM 9.3 MG/DL (8.5-10.4); CHLORIDE, SERUM 106 MMOL/L (96-112); CO2 (CARBON DIOXIDE) 27 MMOL/L (24-34); CREATININE 1.43 MG/DL (0.55-1.02); GFR AFRICAN AMERICAN 43 ML/MIN (>=60); GFR NON AFRICAN AMERICAN 37 ML/MIN (>=60); GLUCOSE, SERUM 120 MG/DL (60-99); POTASSIUM, SERUM 3.5 MMOL/L (3.5-5.3); SODIUM, SERUM 141 MMOL/L (135-148)
[2017-02-16 04:15] LABS: INTERNATIONAL NORMAL RATI 4.1 UNITS (-)
[2017-02-16 04:16] LABS: PROTIME (NOT ORD) 39.4 SEC (12.0-14.5)
[2017-02-16 04:18] LABS: BUN (BLOOD UREA NITROGEN) 28 MG/DL (6-23); CALCIUM, SERUM 9.2 MG/DL (8.5-10.4); CHLORIDE, SERUM 107 MMOL/L (96-112); CO2 (CARBON DIOXIDE) 26 MMOL/L (24-34); CREATININE 1.82 MG/DL (0.55-1.02); GFR AFRICAN AMERICAN 32 ML/MIN (>=60); GFR NON AFRICAN AMERICAN 27 ML/MIN (>=60); GLUCOSE, SERUM 106 MG/DL (60-99); POTASSIUM, SERUM 4.2 MMOL/L (3.5-5.3); SODIUM, SERUM 142 MMOL/L (135-148)
[2017-02-17 05:25] LABS: BASOPHILS 0.1 %; BASOPHILS ABSOLUTE 0.01 10/3/uL (0.0-0.16); EOSINOPHILS 0 %; HEMATOCRIT 28.9 % (36.0-48.0); HEMOGLOBIN 9.3 g/dL (12.0-16.0); IMMATURE GRANULOCYTES 0.4 %; IMMATURE GRANULOCYTES ABSOLUTE 0.03 10/3/uL (0.0-0.11); LYMPHOCYTES 3.4 %; LYMPHOCYTES ABSOLUTE 0.27 10/3/uL (0.67-4.30); MEAN CORPUS HGB CONC 32.2 g/dL (32.0-36.0); MEAN CORPUSCULAR HEMOGLOB 28.4 pg (26.0-34.0); MEAN CORPUSCULAR VOLUME 88.1 fL (80-100); MEAN PLATELET VOLUME 9.4 fL (9.2-13.0); MONOCYTES 0.4 %; MONOCYTES ABSOLUTE 0.03 10/3/uL (0.21-1.20); NEUTROPHILS 95.7 %; NEUTROPHILS ABSOLUTE 7.65 10/3/uL (2.02-8.40); PLATELET COUNT 192 10/3/uL (150-400); RBC DISTRIBUTION WIDTH 16.4 % (12.0-16.0); RED CELL COUNT 3.28 10/6/uL (4.0-5.6)
[2017-02-17 05:26] LABS: MANUAL DIFF NO %
[2017-02-17 05:36] LABS: BUN (BLOOD UREA NITROGEN) 30 MG/DL (6-23); CALCIUM, SERUM 8.8 MG/DL (8.5-10.4); CHLORIDE, SERUM 107 MMOL/L (96-112); CO2 (CARBON DIOXIDE) 24 MMOL/L (24-34); CREATININE 1.81 MG/DL (0.55-1.02); GFR AFRICAN AMERICAN 32 ML/MIN (>=60); GFR NON AFRICAN AMERICAN 28 ML/MIN (>=60); POTASSIUM, SERUM 4.3 MMOL/L (3.5-5.3); SODIUM, SERUM 140 MMOL/L (135-148)
[2017-02-17 05:37] LABS: GLUCOSE, SERUM 182 MG/DL (60-99); PHOSPHORUS, SERUM 4.8 MG/DL (2.5-4.5)
[2017-02-17 05:40] LABS: INTERNATIONAL NORMAL RATI 5.4 UNITS (-); PROTIME (NOT ORD) 49.2 SEC (12.0-14.5)
[2017-02-18 05:23] LABS: ALBUMIN 2.7 G/DL (3.5-5.0); CHLORIDE, SERUM 105 MMOL/L (96-112); CO2 (CARBON DIOXIDE) 26 MMOL/L (24-34); DIRECT BILIRUBIN 0.2 MG/DL (0.0-0.4); GLUCOSE, SERUM 201 MG/DL (60-99); INDIRECT BILIRUBIN(NOT ORDER) 0.3 MG/DL (0.1-0.9); POTASSIUM, SERUM 4.2 MMOL/L (3.5-5.3); SGOT(AST) 38 U/L (5-40); SGPT(ALT) 32 U/L (5-65); SODIUM, SERUM 140 MMOL/L (135-148); TOTAL BILIRUBIN 0.5 MG/DL (0-1.2); TOTAL PROTEIN 6.6 G/DL (6.0-8.5)
[2017-02-18 05:25] LABS: ALKALINE PHOSPHATASE 316 U/L (45-117); BUN (BLOOD UREA NITROGEN) 41 MG/DL (6-23); CREATININE 2.52 MG/DL (0.55-1.02); GFR AFRICAN AMERICAN 21 ML/MIN (>=60); GFR NON AFRICAN AMERICAN 19 ML/MIN (>=60)
[2017-02-18 05:28] LABS: INTERNATIONAL NORMAL RATI 6.5 UNITS (-); PROTIME (NOT ORD) 56.5 SEC (12.0-14.5)
[2017-02-18 09:30] LABS: A/G RATIO 0.7 (0.7-1.9); ALBUMIN 2.7 G/DL (3.5-5.0); ALKALINE PHOSPHATASE 318 U/L (45-117); BUN (BLOOD UREA NITROGEN) 44 MG/DL (6-23); CALCIUM, SERUM 8.8 MG/DL (8.5-10.4); CHLORIDE, SERUM 103 MMOL/L (96-112); CO2 (CARBON DIOXIDE) 26 MMOL/L (24-34); CREATININE 2.39 MG/DL (0.55-1.02); GFR AFRICAN AMERICAN 23 ML/MIN (>=60); GFR NON AFRICAN AMERICAN 20 ML/MIN (>=60); GLUCOSE, SERUM 219 MG/DL (60-99); POTASSIUM, SERUM 4.3 MMOL/L (3.5-5.3); SGPT(ALT) 32 U/L (5-65); SODIUM, SERUM 138 MMOL/L (135-148); TOTAL BILIRUBIN 0.4 MG/DL (0-1.2); TOTAL PROTEIN 6.7 G/DL (6.0-8.5)
[2017-02-18 09:31] LABS: SGOT(AST) 42 U/L (5-40)
[2017-02-18 16:49] LABS: ASCORBIC ACID (UR NOT ORDER) NEG (NEG); BILIRUBIN, URINE NEGATIVE (NEG); KETONE, URINE NEGATIVE (NEG); LEUKOCYTE ESTERASE(NOT OR TRACE (NEG); WBC (NOT ORDERED) (RFLEX) 1 (0-5)
[2017-02-19 06:38] LABS: BASOPHILS 0.1 %; BASOPHILS ABSOLUTE 0.01 10/3/uL (0.0-0.16); EOSINOPHILS 0.1 %; EOSINOPHILS ABSOLUTE 0.01 10/3/uL (0.0-0.53); HEMATOCRIT 27.7 % (36.0-48.0); IMMATURE GRANULOCYTES 0.2 %; IMMATURE GRANULOCYTES ABSOLUTE 0.03 10/3/uL (0.0-0.11); LYMPHOCYTES 7.9 %; LYMPHOCYTES ABSOLUTE 1.05 10/3/uL (0.67-4.30); MEAN CORPUS HGB CONC 32.5 g/dL (32.0-36.0); MEAN CORPUSCULAR HEMOGLOB 28.6 pg (26.0-34.0); MEAN CORPUSCULAR VOLUME 87.9 fL (80-100); MEAN PLATELET VOLUME 9.3 fL (9.2-13.0); MONOCYTES 6.6 %; MONOCYTES ABSOLUTE 0.88 10/3/uL (0.21-1.20); NEUTROPHILS 85.1 %; PLATELET COUNT 208 10/3/uL (150-400); RBC DISTRIBUTION WIDTH 16.8 % (12.0-16.0); RED CELL COUNT 3.15 10/6/uL (4.0-5.6)
[2017-02-19 06:39] LABS: INTERNATIONAL NORMAL RATI 2.9 UNITS (-)
[2017-02-19 06:40] LABS: PROTIME (NOT ORD) 29.8 SEC (12.0-14.5)
[2017-02-19 06:42] LABS: MANUAL DIFF NO %; WHITE BLOOD CELLS 13.3 10/3/uL (4.5-10.5)
[2017-02-19 06:54] LABS: ALBUMIN 3.3 G/DL (3.5-5.0); BUN (BLOOD UREA NITROGEN) 52 MG/DL (6-23); CALCIUM, SERUM 8.6 MG/DL (8.5-10.4); CHLORIDE, SERUM 103 MMOL/L (96-112); CO2 (CARBON DIOXIDE) 26 MMOL/L (24-34); CREATININE 2.77 MG/DL (0.55-1.02); GFR AFRICAN AMERICAN 19 ML/MIN (>=60); GFR NON AFRICAN AMERICAN 17 ML/MIN (>=60); GLUCOSE, SERUM 112 MG/DL (60-99); PHOSPHORUS, SERUM 4.9 MG/DL (2.5-4.5); POTASSIUM, SERUM 4.1 MMOL/L (3.5-5.3); SODIUM, SERUM 139 MMOL/L (135-148)
[2017-02-20 04:44] LABS: ALBUMIN 3.1 G/DL (3.5-5.0); BUN (BLOOD UREA NITROGEN) 52 MG/DL (6-23); CALCIUM, SERUM 9.3 MG/DL (8.5-10.4); CHLORIDE, SERUM 104 MMOL/L (96-112); CO2 (CARBON DIOXIDE) 28 MMOL/L (24-34); CREATININE 2.35 MG/DL (0.55-1.02); GFR AFRICAN AMERICAN 23 ML/MIN (>=60); GFR NON AFRICAN AMERICAN 20 ML/MIN (>=60); GLUCOSE, SERUM 128 MG/DL (60-99); PHOSPHORUS, SERUM 4.3 MG/DL (2.5-4.5); POTASSIUM, SERUM 3.7 MMOL/L (3.5-5.3); SODIUM, SERUM 141 MMOL/L (135-148)
[2017-02-20 11:58] LABS: INTERNATIONAL NORMAL RATI 1.7 UNITS (-)
[2017-02-20 17:55] LABS: PROCALCITONIN 1.03 ng/mL (<0.5)
[2017-02-20 18:52] LABS: ASCORBIC ACID (UR NOT ORDER) NEG (NEG); BILIRUBIN, URINE NEGATIVE (NEG); KETONE, URINE NEGATIVE (NEG); LEUKOCYTE ESTERASE(NOT OR NEG (NEG); WBC (NOT ORDERED) (RFLEX) < 1 (0-5)
[2017-02-21 05:26] LABS: BASOPHILS 0 %; EOSINOPHILS 0.5 %; EOSINOPHILS ABSOLUTE 0.08 10/3/uL (0.0-0.53); HEMATOCRIT 32.1 % (36.0-48.0); HEMOGLOBIN 10.5 g/dL (12.0-16.0); IMMATURE GRANULOCYTES 0.3 %; IMMATURE GRANULOCYTES ABSOLUTE 0.04 10/3/uL (0.0-0.11); LYMPHOCYTES 4.8 %; LYMPHOCYTES ABSOLUTE 0.72 10/3/uL (0.67-4.30); MANUAL DIFF NO %; MEAN CORPUS HGB CONC 32.7 g/dL (32.0-36.0); MEAN CORPUSCULAR HEMOGLOB 28.6 pg (26.0-34.0); MEAN CORPUSCULAR VOLUME 87.5 fL (80-100); MEAN PLATELET VOLUME 9.4 fL (9.2-13.0); NEUTROPHILS 88.4 %; NEUTROPHILS ABSOLUTE 13.31 10/3/uL (2.02-8.40); PLATELET COUNT 198 10/3/uL (150-400); RBC DISTRIBUTION WIDTH 16.2 % (12.0-16.0); RED CELL COUNT 3.67 10/6/uL (4.0-5.6); WHITE BLOOD CELLS 15.1 10/3/uL (4.5-10.5)
[2017-02-21 05:32] LABS: INTERNATIONAL NORMAL RATI 1.8 UNITS (-); PROTIME (NOT ORD) 20.9 SEC (12.0-14.5)
[2017-02-21 05:39] LABS: ALBUMIN 2.9 G/DL (3.5-5.0); CALCIUM, SERUM 9.1 MG/DL (8.5-10.4); CHLORIDE, SERUM 104 MMOL/L (96-112); GLUCOSE, SERUM 133 MG/DL (60-99); POTASSIUM, SERUM 3.3 MMOL/L (3.5-5.3); SODIUM, SERUM 140 MMOL/L (135-148)
[2017-02-21 05:40] LABS: BUN (BLOOD UREA NITROGEN) 35 MG/DL (6-23); CO2 (CARBON DIOXIDE) 33 MMOL/L (24-34); CREATININE 1.48 MG/DL (0.55-1.02); GFR AFRICAN AMERICAN 41 ML/MIN (>=60); GFR NON AFRICAN AMERICAN 35 ML/MIN (>=60); PHOSPHORUS, SERUM 3.2 MG/DL (2.5-4.5)
[2017-02-22 05:24] LABS: INTERNATIONAL NORMAL RATI 1.9 UNITS (-); PROTIME (NOT ORD) 21.2 SEC (12.0-14.5)
[2017-02-22 05:25] LABS: BASOPHILS 0.1 %; BASOPHILS ABSOLUTE 0.02 10/3/uL (0.0-0.16); EOSINOPHILS 2.6 %; EOSINOPHILS ABSOLUTE 0.39 10/3/uL (0.0-0.53); HEMATOCRIT 34.1 % (36.0-48.0); HEMOGLOBIN 10.9 g/dL (12.0-16.0); IMMATURE GRANULOCYTES 0.2 %; IMMATURE GRANULOCYTES ABSOLUTE 0.03 10/3/uL (0.0-0.11); LYMPHOCYTES 5.3 %; LYMPHOCYTES ABSOLUTE 0.79 10/3/uL (0.67-4.30); MANUAL DIFF NO %; MEAN CORPUSCULAR HEMOGLOB 28.2 pg (26.0-34.0); MEAN CORPUSCULAR VOLUME 88.3 fL (80-100); MEAN PLATELET VOLUME 9.4 fL (9.2-13.0); MONOCYTES 5.8 %; MONOCYTES ABSOLUTE 0.86 10/3/uL (0.21-1.20); NEUTROPHILS ABSOLUTE 12.73 10/3/uL (2.02-8.40); PLATELET COUNT 207 10/3/uL (150-400); RBC DISTRIBUTION WIDTH 16.3 % (12.0-16.0); RED CELL COUNT 3.86 10/6/uL (4.0-5.6); WHITE BLOOD CELLS 14.8 10/3/uL (4.5-10.5)
[2017-02-22 05:33] LABS: BUN (BLOOD UREA NITROGEN) 32 MG/DL (6-23); CALCIUM, SERUM 9.3 MG/DL (8.5-10.4); CHLORIDE, SERUM 103 MMOL/L (96-112); CO2 (CARBON DIOXIDE) 36 MMOL/L (24-34); CREATININE 1.45 MG/DL (0.55-1.02); GFR AFRICAN AMERICAN 42 ML/MIN (>=60); GFR NON AFRICAN AMERICAN 36 ML/MIN (>=60); GLUCOSE, SERUM 135 MG/DL (60-99); PHOSPHORUS, SERUM 2.7 MG/DL (2.5-4.5); POTASSIUM, SERUM 3.7 MMOL/L (3.5-5.3); SODIUM, SERUM 142 MMOL/L (135-148)
[2017-02-22 08:06] LABS: BE (BASE EXCESS) 8.3 MEQ/L (0 +/- 2.5); CARBOXYHEMOGLOBIN 0.4 % (0-3); HCO3 (ACTUAL BICARBONATE) 32.4 MEQ/L (23-27); HEMOBLOGIN CONTENT 12.3 G/DL (12-16); INSTRUMENT SERIAL # 35151; METHEMOGLOBIN 0.5 % (0-3); O2 CONTENT 15.4 VOL% (18-24); PCO2 (CO2 TENSION) 43 MMHG (35-45); PO2 (O2 TENSION) 58 MMHG (79-93); pH 7.49 (7.37-7.43)
[2017-02-22 08:07] LABS: ALLENS TEST Pos; DEVICE HFNC; SAMPLE Arterial
[2017-02-22 16:10] LABS: BE (BASE EXCESS) 7.9 MEQ/L (0 +/- 2.5); HCO3 (ACTUAL BICARBONATE) 34.1 MEQ/L (23-27); HEMOBLOGIN CONTENT 11.3 G/DL (12-16); INSTRUMENT SERIAL # 8087; METHEMOGLOBIN 0.3 % (0-3); MODE CMV; O2 CONTENT 15.5 VOL% (18-24); PCO2 (CO2 TENSION) 56 MMHG (35-45); PO2 (O2 TENSION) 108 MMHG (79-93); SAMPLE Arterial; TIDAL VOLUME 400 ML
[2017-02-23 03:55] LABS: BASOPHILS 0.1 %; BASOPHILS ABSOLUTE 0.02 10/3/uL (0.0-0.16); EOSINOPHILS 3.5 %; EOSINOPHILS ABSOLUTE 0.58 10/3/uL (0.0-0.53); HEMATOCRIT 33.3 % (36.0-48.0); HEMOGLOBIN 10.6 g/dL (12.0-16.0); IMMATURE GRANULOCYTES 0.3 %; IMMATURE GRANULOCYTES ABSOLUTE 0.05 10/3/uL (0.0-0.11); LYMPHOCYTES 5.5 %; LYMPHOCYTES ABSOLUTE 0.92 10/3/uL (0.67-4.30); MEAN CORPUS HGB CONC 31.8 g/dL (32.0-36.0); MEAN CORPUSCULAR HEMOGLOB 28.3 pg (26.0-34.0); MEAN PLATELET VOLUME 9.5 fL (9.2-13.0); MONOCYTES 6.3 %; MONOCYTES ABSOLUTE 1.04 10/3/uL (0.21-1.20); NEUTROPHILS 84.3 %; PLATELET COUNT 212 10/3/uL (150-400); RBC DISTRIBUTION WIDTH 15.9 % (12.0-16.0); RED CELL COUNT 3.74 10/6/uL (4.0-5.6); WHITE BLOOD CELLS 16.6 10/3/uL (4.5-10.5)
[2017-02-23 03:56] LABS: MANUAL DIFF NO %
[2017-02-23 04:01] LABS: INTERNATIONAL NORMAL RATI 2.3 UNITS (-)
[2017-02-23 04:07] LABS: PROTIME (NOT ORD) 25.4 SEC (12.0-14.5)
[2017-02-23 04:11] LABS: ALLENS TEST Pos; BE (BASE EXCESS) 5.7 MEQ/L (0 +/- 2.5); CARBOXYHEMOGLOBIN 0.1 % (0-3); HCO3 (ACTUAL BICARBONATE) 30.3 MEQ/L (23-27); HEMOBLOGIN CONTENT 11.4 G/DL (12-16); INSTRUMENT SERIAL # 35151; METHEMOGLOBIN 0.4 % (0-3); MODE CMV; O2 CONTENT 15.1 VOL% (18-24); OPERATOR ID 23712; PCO2 (CO2 TENSION) 45 MMHG (35-45); PO2 (O2 TENSION) 76 MMHG (79-93); SAMPLE Arterial; TIDAL VOLUME 400 ML; pH 7.45 (7.37-7.43)
[2017-02-23 04:17] LABS: A/G RATIO 0.7 (0.7-1.9); ALBUMIN 2.7 G/DL (3.5-5.0); BUN (BLOOD UREA NITROGEN) 33 MG/DL (6-23); CALCIUM, SERUM 8.7 MG/DL (8.5-10.4); CHLORIDE, SERUM 101 MMOL/L (96-112); CO2 (CARBON DIOXIDE) 32 MMOL/L (24-34); CREATININE 1.56 MG/DL (0.55-1.02); FREE T4 1.86 NG/DL (0.76-1.46); GFR AFRICAN AMERICAN 38 ML/MIN (>=60); GFR NON AFRICAN AMERICAN 33 ML/MIN (>=60); GLOBULIN 4.1 G/DL (2.5-4.1); GLUCOSE, SERUM 151 MG/DL (60-99); PHOSPHORUS, SERUM 3.1 MG/DL (2.5-4.5); SGPT(ALT) 20 U/L (5-65); SODIUM, SERUM 142 MMOL/L (135-148); TOTAL BILIRUBIN 0.8 MG/DL (0-1.2); TOTAL PROTEIN 6.8 G/DL (6.0-8.5)
[2017-02-23 04:30] LABS: ALKALINE PHOSPHATASE 225 U/L (45-117); SGOT(AST) 31 U/L (5-40)
[2017-02-24 03:53] LABS: BASOPHILS 0 %; EOSINOPHILS 0 %; HEMOGLOBIN 9.3 g/dL (12.0-16.0); IMMATURE GRANULOCYTES 0.3 %; IMMATURE GRANULOCYTES ABSOLUTE 0.02 10/3/uL (0.0-0.11); LYMPHOCYTES 4.1 %; MEAN CORPUS HGB CONC 32.4 g/dL (32.0-36.0); MEAN CORPUSCULAR HEMOGLOB 28.8 pg (26.0-34.0); MEAN CORPUSCULAR VOLUME 88.9 fL (80-100); MEAN PLATELET VOLUME 9.5 fL (9.2-13.0); MONOCYTES 1.2 %; MONOCYTES ABSOLUTE 0.09 10/3/uL (0.21-1.20); NEUTROPHILS 94.4 %; NEUTROPHILS ABSOLUTE 6.84 10/3/uL (2.02-8.40); RBC DISTRIBUTION WIDTH 15.6 % (12.0-16.0); RED CELL COUNT 3.23 10/6/uL (4.0-5.6)
[2017-02-24 03:57] LABS: ALLENS TEST Pos; BE (BASE EXCESS) 3.7 MEQ/L (0 +/- 2.5); CARBOXYHEMOGLOBIN 0.7 % (0-3); HCO3 (ACTUAL BICARBONATE) 28.7 MEQ/L (23-27); HEMOBLOGIN CONTENT 11.5 G/DL (12-16); INSTRUMENT SERIAL # 8083; METHEMOGLOBIN 0.1 % (0-3); MODE CMV; O2 CONTENT 15.3 VOL% (18-24); OPERATOR ID 31061; PCO2 (CO2 TENSION) 46 MMHG (35-45); PO2 (O2 TENSION) 76 MMHG (79-93); SAMPLE Arterial; TIDAL VOLUME 400 ML; pH 7.42 (7.37-7.43)
[2017-02-24 04:01] LABS: INTERNATIONAL NORMAL RATI 3.3 UNITS (-)
[2017-02-24 04:02] LABS: HEMATOCRIT 28.7 % (36.0-48.0); MANUAL DIFF NO %; PLATELET COUNT 142 10/3/uL (150-400); WHITE BLOOD CELLS 7.3 10/3/uL (4.5-10.5)
[2017-02-24 04:05] LABS: CALCIUM, SERUM 8.6 MG/DL (8.5-10.4); CHLORIDE, SERUM 101 MMOL/L (96-112); CO2 (CARBON DIOXIDE) 30 MMOL/L (24-34); CREATININE 1.91 MG/DL (0.55-1.02); GFR AFRICAN AMERICAN 30 ML/MIN (>=60); GFR NON AFRICAN AMERICAN 26 ML/MIN (>=60); POTASSIUM, SERUM 3.5 MMOL/L (3.5-5.3); SODIUM, SERUM 139 MMOL/L (135-148)
[2017-02-24 04:09] LABS: BUN (BLOOD UREA NITROGEN) 46 MG/DL (6-23); GLUCOSE, SERUM 222 MG/DL (60-99)
[2017-02-25 03:52] LABS: BASOPHILS 0.1 %; BASOPHILS ABSOLUTE 0.01 10/3/uL (0.0-0.16); EOSINOPHILS 0 %; HEMATOCRIT 28.9 % (36.0-48.0); HEMOGLOBIN 9.3 g/dL (12.0-16.0); IMMATURE GRANULOCYTES 0.5 %; IMMATURE GRANULOCYTES ABSOLUTE 0.06 10/3/uL (0.0-0.11); LYMPHOCYTES ABSOLUTE 0.39 10/3/uL (0.67-4.30); MEAN CORPUS HGB CONC 32.2 g/dL (32.0-36.0); MEAN CORPUSCULAR HEMOGLOB 28.4 pg (26.0-34.0); MEAN CORPUSCULAR VOLUME 88.1 fL (80-100); MEAN PLATELET VOLUME 10.2 fL (9.2-13.0); MONOCYTES 2.6 %; MONOCYTES ABSOLUTE 0.34 10/3/uL (0.21-1.20); NEUTROPHILS 93.8 %; NEUTROPHILS ABSOLUTE 12.04 10/3/uL (2.02-8.40); PLATELET COUNT 158 10/3/uL (150-400); RBC DISTRIBUTION WIDTH 15.7 % (12.0-16.0); RED CELL COUNT 3.28 10/6/uL (4.0-5.6)
[2017-02-25 03:56] LABS: MANUAL DIFF NO %; WHITE BLOOD CELLS 12.8 10/3/uL (4.5-10.5)
[2017-02-25 04:09] LABS: INTERNATIONAL NORMAL RATI 3.9 UNITS (-)
[2017-02-25 04:10] LABS: A/G RATIO 0.6 (0.7-1.9); ALBUMIN 2.4 G/DL (3.5-5.0); ALKALINE PHOSPHATASE 220 U/L (45-117); CALCIUM, SERUM 8.5 MG/DL (8.5-10.4); CHLORIDE, SERUM 101 MMOL/L (96-112); CO2 (CARBON DIOXIDE) 29 MMOL/L (24-34); CREATININE 2.27 MG/DL (0.55-1.02); GFR AFRICAN AMERICAN 24 ML/MIN (>=60); GFR NON AFRICAN AMERICAN 21 ML/MIN (>=60); GLUCOSE, SERUM 208 MG/DL (60-99); POTASSIUM, SERUM 3.5 MMOL/L (3.5-5.3); SGOT(AST) 22 U/L (5-40); SGPT(ALT) 21 U/L (5-65); SODIUM, SERUM 138 MMOL/L (135-148); TOTAL BILIRUBIN 0.4 MG/DL (0-1.2); TOTAL PROTEIN 6.4 G/DL (6.0-8.5)
[2017-02-25 04:11] LABS: BUN (BLOOD UREA NITROGEN) 65 MG/DL (6-23); PHOSPHORUS, SERUM 4.1 MG/DL (2.5-4.5)
[2017-02-25 04:12] LABS: ALLENS TEST Pos; BE (BASE EXCESS) 3.8 MEQ/L (0 +/- 2.5); CARBOXYHEMOGLOBIN 0.3 % (0-3); HEMOBLOGIN CONTENT 10.1 G/DL (12-16); INSTRUMENT SERIAL # 35151; METHEMOGLOBIN 0.5 % (0-3); O2 CONTENT 13.1 VOL% (18-24); OPERATOR ID 33214; PCO2 (CO2 TENSION) 47 MMHG (35-45); PO2 (O2 TENSION) 67 MMHG (79-93); SAMPLE Arterial; TIDAL VOLUME 400 ML; pH 7.41 (7.37-7.43)
[2017-02-25 19:06] LABS: CREATININE, URINE 43.8 MG/DL
[2017-02-26 03:37] LABS: INTERNATIONAL NORMAL RATI 3.6 UNITS (-); PROTIME (NOT ORD) 35.4 SEC (12.0-14.5)
[2017-02-26 03:40] LABS: ALBUMIN 2.5 G/DL (3.5-5.0); BUN (BLOOD UREA NITROGEN) 77 MG/DL (6-23); CALCIUM, SERUM 8.6 MG/DL (8.5-10.4); CHLORIDE, SERUM 103 MMOL/L (96-112); CO2 (CARBON DIOXIDE) 29 MMOL/L (24-34); CREATININE 1.91 MG/DL (0.55-1.02); GFR AFRICAN AMERICAN 30 ML/MIN (>=60); GFR NON AFRICAN AMERICAN 26 ML/MIN (>=60); GLUCOSE, SERUM 168 MG/DL (60-99); PHOSPHORUS, SERUM 5.6 MG/DL (2.5-4.5); POTASSIUM, SERUM 3.6 MMOL/L (3.5-5.3); SODIUM, SERUM 140 MMOL/L (135-148)
[2017-02-26 04:17] LABS: PROCALCITONIN 0.52 ng/mL (<0.5)
[2017-02-26 05:04] LABS: BASOPHILS 0.1 %; BASOPHILS ABSOLUTE 0.01 10/3/uL (0.0-0.16); EOSINOPHILS 0 %; HEMATOCRIT 31.3 % (36.0-48.0); HEMOGLOBIN 10.1 g/dL (12.0-16.0); IMMATURE GRANULOCYTES 0.9 %; IMMATURE GRANULOCYTES ABSOLUTE 0.17 10/3/uL (0.0-0.11); LYMPHOCYTES 2.7 %; MEAN CORPUS HGB CONC 32.3 g/dL (32.0-36.0); MEAN CORPUSCULAR HEMOGLOB 28.5 pg (26.0-34.0); MEAN CORPUSCULAR VOLUME 88.2 fL (80-100); MEAN PLATELET VOLUME 10.2 fL (9.2-13.0); MONOCYTES 4.9 %; NEUTROPHILS 91.4 %; NEUTROPHILS ABSOLUTE 16.89 10/3/uL (2.02-8.40); PLATELET COUNT 171 10/3/uL (150-400); RBC DISTRIBUTION WIDTH 15.8 % (12.0-16.0); RED CELL COUNT 3.55 10/6/uL (4.0-5.6)
[2017-02-26 05:05] LABS: MANUAL DIFF NO %; WHITE BLOOD CELLS 18.5 10/3/uL (4.5-10.5)
== END 2017-02-26 18:23 | disposition hospice, inpatient (51) | DRG 208 ==
LOC: ER 14:02 → 6NO 16:53 → CCU 02-22 16:31
PROVIDERS: Hospitalist; Internal Medicine Cardiovascular Disease; Internal Medicine Clinical Cardiac Electrophysiology; Internal Medicine Critical Care Medicine; Nurse Practitioner; Nurse Practitioner Family; Physician Assistant Medical
PROC: 5A2204Z Restoration of Cardiac Rhythm, Single (ICD-10-PCS; 2017-02-15)
PROC: 0W9930Z Drainage of Right Pleural Cavity with Drainage Device, Percutaneous Approach (ICD-10-PCS; 2017-02-20)
PROC: 5A1945Z Respiratory Ventilation, 24-96 Consecutive Hours (ICD-10-PCS; principal; 2017-02-22)
PROC: 4A023N8 Measurement of Cardiac Sampling and Pressure, Bilateral, Percutaneous Approach (ICD-10-PCS; principal; 2017-02-22)
PROC: B2151ZZ Fluoroscopy of Left Heart using Low Osmolar Contrast (ICD-10-PCS; 2017-02-22)
PROC: B2111ZZ Fluoroscopy of Multiple Coronary Arteries using Low Osmolar Contrast (ICD-10-PCS; 2017-02-22)
PROC: 0BH17EZ Insertion of Endotracheal Airway into Trachea, Via Natural or Artificial Opening (ICD-10-PCS; 2017-02-22)
DX: J96.01 Acute respiratory failure with hypoxia (principal); N17.0 Acute kidney failure with tubular necrosis; I50.33 Acute on chronic diastolic (congestive) heart failure; J90 Pleural effusion, not elsewhere classified; N18.4 Chronic kidney disease, stage 4 (severe); I44.1 Atrioventricular block, second degree; E11.22 Type 2 diabetes mellitus with diabetic chronic kidney disease; I27.2 Other secondary pulmonary hypertension; I48.4 Atypical atrial flutter; I13.0 Hypertensive heart and chronic kidney disease with heart failure and stage 1 through stage 4 chronic kidney disease, or unspecified chronic kidney disease; I48.1 Persistent atrial fibrillation; J44.9 Chronic obstructive pulmonary disease, unspecified; G89.29 Other chronic pain; Z96.41 Presence of insulin pump (external) (internal); E78.5 Hyperlipidemia, unspecified; E66.9 Obesity, unspecified; E04.1 Nontoxic single thyroid nodule; G25.81 Restless legs syndrome; Z66 Do not resuscitate; E03.9 Hypothyroidism, unspecified; I25.10 Atherosclerotic heart disease of native coronary artery without angina pectoris; E78.00 Pure hypercholesterolemia, unspecified; Z87.891 Personal history of nicotine dependence; I25.2 Old myocardial infarction; Z79.4 Long term (current) use of insulin; Z88.8 Allergy status to other drugs, medicaments and biological substances; Z98.890 Other specified postprocedural states; E87.6 Hypokalemia
CPT/HCPCS: 31720; 36600; 71010; 71020; 74000; 74020; 76376; 76700; 80048; 80053; 80069; 80076; 81001; 82140; 82570; 82803; 82805; 82962; 83605; 83735; 83880; 84100; 84132; 84134; 84145; 84156; 84300; 84439; 84443; 84481; 84484; 84540; 85025; 85610; 85730; 87070; 87077; 87186; 87205; 87449; 87493; 87493-59; 87641; 92950; 92960; 93005; 93225; 93226; 93308; 93312; 93320; 93325; 93460; 93463; 93970; 94002; 94003; 94640; 94660; 94770; 96374; 96375; 99152; 99153; 99291; A9270-GY; C1769; C1887; C1894; C9113; J0360; J1205; J1325; J2250; J2370; J2920; J2930; J3010; J3370; J3475; P9047; Q9957; Q9967

== ENCOUNTER 2017-02-26 18:29 | Inpatient (IN) | payer OTHER ==
--- NOTE | ~2017-02-26 | HP ---
History And Physical [place] [id number] [facility] [place]. [address] NAME: CESARIO RENTERIA : 45 STATUS : ADM IN [facility]#: [id number] AGE: 71 ADM/REG DATE : 02/26/17 MR#: [id number] REPORT SERV DATE: 02/27/17 DICTATED BY: ANJEL OLIVERA DATE: 02/27/17 REPORT STATUS : Draft TRANSCRIBED BY: RANDALL DATE: 02/27/17 DATE OF ADMISSION: 02/26/2017 Date of original admission was 02/12/2017. Date of transfer to [facility] was the evening of February 26. The patient is a 71-year-old, with a history of atrial fibrillation, going back to at least her first ablation in 2007. She also had rheumatic fever as a child. She came in to the doctor's office on 02/12/2017, with atrial fibrillation and rapid ventricular response, was in cardiogenic edema, and was sent for direct admission. She has had ablations x2. She has had 2 heart caths. She had, after admission, had a catheter procedure that required her to lay down flat. She was intubated and her preexisting DNR was suspended for that period of time. She was intubated on Monday and extubated on Monday. She has continued to decline and had respiratory failure. She is now on Vapotherm 40 L and still dyspneic. Family wishes to reinstate her DNR and go for comfort care only and we are admitting her GIP for dyspnea. PAST MEDICAL HISTORY: Pertinent for pulmonary hypertension, right-sided heart failure, type 2 diabetes, she was on an insulin pump; restless legs syndrome; hypertension; hyperlipidemia; anemia; sleep apnea; chronic kidney disease stage 3 to 4; atrial fibrillation; hypothyroid; chronic pain; and some lymphedema. She is status post ablation x2. Heart catheterization x2. Thyroidectomy. Hysterectomy. Left total knee. and hysterectomy. She has been for 43 years. She has 1 son who works at the [employer]. She worked at [employer] for many years. She is Scientologist. She smoked for only 1 year likely a long time ago and then quit. No alcohol. FAMILY HISTORY: Positive for Alzheimer's, stroke, and heart disease. She had an adverse drug reaction to Adcirca. Rest of the review of systems, the patient says that her breathing is a little better but she is fairly obtunded and falls asleep frequently during my visit. PHYSICAL EXAMINATION: GENERAL: This is an obese obtunded white female. VITAL SIGNS: Blood pressure is 150/73, respirations 17, oxygen saturation 93% on 4 L of oxygen. HENT: Pupils are equal. Extraocular motions are intact. No jaundice is noted. NECK: I cannot hear reported carotid bruits that she has over the week. She has no palpable thyroid masses. LUNGS: Surprisingly clear though they do a few rhonchi. HEART: Has a regular sinus rhythm with no murmurs or gallops. ABDOMEN: Protuberant. Soft, nontender with positive bowel sounds. EXTREMITIES: She has no edema in her legs. ASSESSMENT AND PLAN: A 71-year-old with severe respiratory failure who was DNR before she History And Physical [address] [address] NAME: CESARIO RENTERIA : 45 STATUS : ADM IN [facility]#: [id number] AGE: 71 ADM/REG DATE : 02/26/17 MR#: [id number] REPORT SERV DATE: 02/27/17 DICTATED BY: ANJEL OLIVERA DATE: 02/27/17 REPORT STATUS : Draft TRANSCRIBED BY: RANDALL DATE: 02/27/17 came into the hospital and is DNR now. She and the family wished to focus only on comfort care and understand that she will most likely pass away in the hospital while we are treating her in [facility] for her severe dyspnea. Prognosis likely hours to days. GP/MODL Anjel Olivera MD / [id number] CC: MD Oliver Roca M.D.
--- NOTE | ~2017-02-26 | DS ---
Discharge Summary [facility] [address] [place]. [address] NAME: CESARIO RENTERIA : 45 STATUS : DIS IN PAT#: [id number] AGE: 71 ADM/REG DATE : 02/26/17 MR#: [id number] REPORT SERV DATE: 03/24/17 DICTATED BY: ANJEL OLIVERA DATE: 03/24/17 REPORT STATUS : Draft TRANSCRIBED BY: MODL DATE: 03/24/17 ADMISSION DATE: 02/26/2017 DISCHARGE DATE: 03/04/2017 DISCHARGE/ SUMMARY The patient was initially admitted to [facility] on 02/12/2017. And transferred to [facility] on 02/26/2017. A 71-year-old with history of atrial fibrillation, ablation, rheumatic fever. She had a heart catheterization which required her to lie flat. She went into respiratory failure, was intubated on Monday, and extubated on Monday. She continued to decline and in respiratory failure, was on Vapotherm and after a number of days, it was decided to consult hospice to keep the patient focused just on comfort care. She was admitted GIP for her severe dyspnea and on 02/27/2017, we started her on morphine and Ativan which gave her great relief from her severe dyspnea and we continued to follow her working with her dyspnea until the patient on 03/04/2017, after 6 days in the hospital. The family was very grateful that she did not feel like she was drowning the whole time that we had her under our care where we could never get her stable enough to move her out of the hospital. FINAL CAUSE OF : Respiratory failure. DICTATED BY: Anjel Olivera MD GP/MODMitali Anjel Olivera MD / [id number] CC: MD Oliver Roca M.D.
[~2017-02-26 18:29] MED LIST changes: +AUG500 PO; +CARD30 PO; +SYNTHROID175 MCG PO; +SYNTHROID200 MCG PO
[2017-02-27 08:50] LABS: INTERNATIONAL NORMAL RATI 3.8 UNITS (-); PROTIME (NOT ORD) 37.5 SEC (12.0-14.5)
== END 2017-03-04 12:24 | disposition expired | DRG 207 ==
LOC: 4SO 18:29 → CCU 19:01 → 4SO 21:31
PROVIDERS: Family Medicine Hospice and Palliative Medicine
PROC: 0BH17EZ Insertion of Endotracheal Airway into Trachea, Via Natural or Artificial Opening (ICD-10-PCS; principal; 2017-02-22)
PROC: 5A1955Z Respiratory Ventilation, Greater than 96 Consecutive Hours (ICD-10-PCS; 2017-02-22)
PROC: 5A2204Z Restoration of Cardiac Rhythm, Single (ICD-10-PCS; 2017-02-22)
PROC: B246ZZ4 Ultrasonography of Right and Left Heart, Transesophageal (ICD-10-PCS; 2017-02-22)
PROC: 4A023N7 Measurement of Cardiac Sampling and Pressure, Left Heart, Percutaneous Approach (ICD-10-PCS; 2017-02-22)
PROC: B2111ZZ Fluoroscopy of Multiple Coronary Arteries using Low Osmolar Contrast (ICD-10-PCS; 2017-02-22)
PROC: B2151ZZ Fluoroscopy of Left Heart using Low Osmolar Contrast (ICD-10-PCS; 2017-02-22)
DX: J96.01 Acute respiratory failure with hypoxia (principal); I50.33 Acute on chronic diastolic (congestive) heart failure; A04.7 Enterocolitis due to Clostridium difficile; N18.4 Chronic kidney disease, stage 4 (severe); E11.22 Type 2 diabetes mellitus with diabetic chronic kidney disease; I27.2 Other secondary pulmonary hypertension; N17.9 Acute kidney failure, unspecified; K76.1 Chronic passive congestion of liver; I48.4 Atypical atrial flutter; I13.0 Hypertensive heart and chronic kidney disease with heart failure and stage 1 through stage 4 chronic kidney disease, or unspecified chronic kidney disease; Z99.11 Dependence on respirator [ventilator] status; Z51.5 Encounter for palliative care; I48.2 Chronic atrial fibrillation; G25.81 Restless legs syndrome; E03.9 Hypothyroidism, unspecified; E66.9 Obesity, unspecified; D64.9 Anemia, unspecified; Z66 Do not resuscitate; Z79.4 Long term (current) use of insulin; Z96.41 Presence of insulin pump (external) (internal); G47.33 Obstructive sleep apnea (adult) (pediatric); F17.210 Nicotine dependence, cigarettes, uncomplicated; Z68.30 Body mass index [BMI] 30.0-30.9, adult; Z88.8 Allergy status to other drugs, medicaments and biological substances; J44.9 Chronic obstructive pulmonary disease, unspecified; I06.0 Rheumatic aortic stenosis
CPT/HCPCS: 80202; 82962; 85610; 94640; 94660; A9270-GY; C9113; J3370